=== PATIENT | female | born 1955 | race Caucasian/White ===

== ENCOUNTER → 2016-08-21 | Outpatient (REF) | payer OTHER ==
[2016-08-21 20:14] LABS: BASO % 0.4 % (0.0-1.0); EOS # 0.3 K/mm3 (0.0-0.50); LARGE UNSTAINED CELL # 0.2 K/mm3 (0.0-0.4); LARGE UNSTAINED CELL % 2.8 % (0.0-4.0); LYMPH # 1.8 K/mm3 (1.5-4.5); LYMPH % 22.7 % (24.0-44.0); MEAN CORPUSCULAR HEMOGLOBIN 30.3 pg (27.0-33.0); MEAN CORPUSCULAR HGB CONC 34.5 g/dl (32.0-36.5); MEAN CORPUSCULAR VOLUME 87.9 fl (80.0-96.0); MONO # 0.6 K/mm3 (0.0-0.8); MONO % 7.7 % (0.0-5.0); NEUTROPHILS # 4.9 K/mm3 (1.8-7.7); NEUTROPHILS % 62.3 % (36.0-66.0); PLATELET COUNT, AUTOMATED 287 k/mm3 (150-450); RED CELL DISTRIBUTION WIDTH 12.6 % (11.5-14.5); WHITE BLOOD COUNT 7.9 K/mm3 (4.0-10.0)
[2016-08-21 20:18] LABS: INR 0.92
[2016-08-21 20:32] LABS: ANION GAP 8 MEQ/L (8-16); BLOOD UREA NITROGEN 19 MG/DL (7-18); CALCIUM LEVEL 8.8 MG/DL (8.5-10.1); CARBON DIOXIDE LEVEL 29 MEQ/L (21-32); CHLORIDE LEVEL 101 MEQ/L (98-107); CREATININE FOR GFR 0.91 MG/DL (0.55-1.02); GLOMERULAR FILTRATION RATE > 60.0 (>51); GLUCOSE, FASTING 105 MG/DL (70-105); POTASSIUM SERUM 4.5 MEQ/L (3.5-5.1); SODIUM LEVEL 138 MEQ/L (136-145)
== END ==
LOC: M LAB REF 19:23
PROVIDERS: ATTEND Surgery Vascular Surgery
DX: Z01.818 Encounter for other preprocedural examination (principal); I70.211 Atherosclerosis of native arteries of extremities with intermittent claudication, right leg; D69.8 Other specified hemorrhagic conditions

== ENCOUNTER 2019-01-12 08:22 | Day surgery (SDC) | payer OTHER ==
[~2019-01-12] VITALS: Ht 185.4 cm; Wt 72.6 kg
[~2019-01-12 08:22] MED LIST: ACETAMINOPHEN 325 MG TAB PO PRN; ATOR80TA59 PO; BALANCED SALT IRRIGATION SOLUTION 500ML BAG (FOR OR EYE MACHINE) As Ordered ONE; BUPR150T5 PO; CEFUROXIME 1MG/0.1ML INTRACAMERAL INJ As Ordered ONE; CLOP75TA2 PO; CYCLOPENTOLATE 2% OPHTH SOLN 2ML BTL OS ONE; HEALON DUET PRO(HEALON 10MG/ML 0.55ML & HEALON ENDOCOAT 30MG/ML 0.85ML) As Ordered ONE; HYDR12CA PO; ISOS30TA4 PO; LIDOCAINE 1% SDV 5 ML VIAL As Ordered ONE; LIDOCAINE 3.5 % 1ML OPHTH TOPICAL GEL OU ONE; LOSA50TA88 PO; METO1TAB33 PO; OFLOXACIN 0.3 % (OCUFLOX) OPTH SOL 5ML OS ONE; PHENYLEPHRINE 2.5% OPHTH SOL 2ML OS ONE; PHENYLEPHRINE HCL 10 % OPHTH. SOL 5ML OS PRN; POVIDONE-IODINE 5% OPHTH PREP SOL 30ML As Ordered ONE; PROPARACAINE 0.5% OPHTH SOL 15ML OS PRN; TROPICAMIDE 1% OPHTH SOLN 2ML OS ONE; VENL37TA PO
[2019-01-12] MEDS ORDERED: MIDAZOLAM INJ 2 MG/2 ML VIAL (J2250) As Ordered ONE (09:49)
[2019-01-12] MEDS ORDERED: fentaNYL 100 MCG/2 ML INJECTION (J3010) As Ordered ONE (09:49)
[2019-01-12] MEDS ORDERED: AcetaZOLAMIDE 500 MG ER CAP As Ordered ONE (12:29)
[2019-01-12 12:35] VITALS: BP 192/78
[2019-01-12] MEDS ORDERED: KETOROLAC 0.5% OPHTH SOLN OS ONE (13:00)
[2019-01-12] MEDS ORDERED: ONDANSETRON 4MG/2ML VIAL (J2405) IV PRN (13:00)
[2019-01-12] MEDS ORDERED: AcetaZOLAMIDE 500 MG ER CAP PO ONE (13:00)
[2019-01-12] MEDS ORDERED: TRIMETHOBENZAMIDE 300 MG CAP PO PRN (13:00)
--- NOTE | 2019-01-13 08:27 | RO ---
DATE OF PROCEDURE: 01/12/2019 PREPROCEDURE DIAGNOSIS: Age related nuclear cataract, left eye. POSTPROCEDURE DIAGNOSIS: Age related nuclear cataract, left eye. PROCEDURE: Phacoemulsification and posterior chamber intraocular lens implantation. The lens used was [id number], 20.0 D. SURGEON: Viad Castro MD MEDICAL AIDE: ANESTHESIA: Topical with sedation. DESCRIPTION OF PROCEDURE: The patient was prepped and draped in the usual fashion. A lid speculum was placed between the lids. The eye was fixated. A stab incision was made to the anterior chamber, and 1% nonpreserved lidocaine was instilled. Then, viscoelastic was instilled. The eye was re-fixated. A 2.75 mm sapphire keratome was used to make a clear corneal temporal limbal incision. Capsulorrhexis was begun with a 30-gauge bent needle and then carried out in a circular fashion with capsulorrhexis forceps. The lens was hydrodissected, and then the phacoemulsification unit was used to make a groove in the nucleus in two meridians. The nucleus was then cracked into four quadrants. Each quadrant was removed with the phacoemulsification unit. Any remaining cortex was removed with the irrigation and aspiration (I and A) unit. Capsular bag was refilled with viscoelastic. A posterior chamber intraocular lens was placed in the capsular bag without difficulty. Any remaining viscoelastic was removed with the I and A unit. The wound was hydrated, and Miochol and cefuroxime were instilled into the anterior chamber. The patient tolerated the procedure well and went to the recovery room in stable condition.
== END 2019-01-12 12:46 | disposition home or self-care (01) ==
LOC: M SDC 08:22
PROVIDERS: ATTEND Ophthalmology
DX: H25.12 Age-related nuclear cataract, left eye (principal); I25.10 Atherosclerotic heart disease of native coronary artery without angina pectoris; I10 Essential (primary) hypertension; Z79.899 Other long term (current) drug therapy; Z95.1 Presence of aortocoronary bypass graft
CPT/HCPCS: 66984; 92015; J2250; J3010

== ENCOUNTER 2019-02-02 10:21 | Day surgery (SDC) | payer OTHER ==
[~2019-02-02] VITALS: Ht 154.9 cm; Wt 70.3 kg
[~2019-02-02 10:21] MED LIST changes: +CYCLOPENTOLATE 2% OPHTH SOLN 2ML BTL OD ONE; -CYCLOPENTOLATE 2% OPHTH SOLN 2ML BTL OS ONE; +MIDAZOLAM INJ 2 MG/2 ML VIAL (J2250) As Ordered ONE; +OFLOXACIN 0.3 % (OCUFLOX) OPTH SOL 5ML OD ONE; -OFLOXACIN 0.3 % (OCUFLOX) OPTH SOL 5ML OS ONE; +PHENYLEPHRINE 2.5% OPHTH SOL 2ML OD ONE; -PHENYLEPHRINE 2.5% OPHTH SOL 2ML OS ONE; +PHENYLEPHRINE HCL 10 % OPHTH. SOL 5ML OD PRN; -PHENYLEPHRINE HCL 10 % OPHTH. SOL 5ML OS PRN; +PROPARACAINE 0.5% OPHTH SOL 15ML OD PRN; -PROPARACAINE 0.5% OPHTH SOL 15ML OS PRN; +TROPICAMIDE 1% OPHTH SOLN 2ML OD ONE; -TROPICAMIDE 1% OPHTH SOLN 2ML OS ONE; +fentaNYL 100 MCG/2 ML INJECTION (J3010) As Ordered ONE
[2019-02-02] MEDS ORDERED: TETRACAINE 0.5% OPHTH SOLN 4ML As Ordered ONE (10:58)
[2019-02-02] MEDS ORDERED: KETOROLAC 0.5% OPHTH SOLN OD ONE (11:30)
[2019-02-02] MEDS ORDERED: TRIMETHOBENZAMIDE 300 MG CAP PO PRN (11:30)
[2019-02-02] MEDS ORDERED: AcetaZOLAMIDE 500 MG ER CAP PO ONE (11:30)
[2019-02-02 11:40] VITALS: BP 136/66
--- NOTE | 2019-02-02 12:30 | RO ---
DATE OF PROCEDURE: 02/02/2019 PREPROCEDURE DIAGNOSIS: Age related nuclear cataract, right eye. POSTPROCEDURE DIAGNOSIS: Age related nuclear cataract, right eye. PROCEDURE: Phacoemulsification and posterior chamber intraocular lens implantation of right eye. SURGEON: Vida Castro MD CIRCLE SHEAR OPERATOR: ANESTHESIA: Topical with sedation. DESCRIPTION OF PROCEDURE: The patient was prepped and draped in the usual fashion. A lid speculum was placed between the lids. The eye was fixated. A stab incision was made to the anterior chamber, and 1% nonpreserved lidocaine was instilled. Then, viscoelastic was instilled. The eye was re-fixated. A 2.75 mm sapphire keratome was used to make a clear corneal temporal limbal incision. Capsulorrhexis was begun with a 30-gauge bent needle and then carried out in a circular fashion with capsulorrhexis forceps. The lens was hydrodissected, and then the phacoemulsification unit was used to make a groove in the nucleus in two meridians. The nucleus was then cracked into four quadrants. Each quadrant was removed with the phacoemulsification unit. Any remaining cortex was removed with the irrigation and aspiration (I and A) unit. Capsular bag was refilled with viscoelastic. A posterior chamber intraocular lens was placed in the capsular bag without difficulty. Any remaining viscoelastic was removed with the I and A unit. The wound was hydrated, and Miochol and cefuroxime were instilled into the anterior chamber. The patient tolerated the procedure well and went to the recovery room in stable condition.
== END 2019-02-02 11:45 | disposition home or self-care (01) ==
LOC: M SDC 10:21
PROVIDERS: ATTEND Ophthalmology
DX: H25.11 Age-related nuclear cataract, right eye (principal); I25.2 Old myocardial infarction; I25.10 Atherosclerotic heart disease of native coronary artery without angina pectoris; Z95.1 Presence of aortocoronary bypass graft; Z95.5 Presence of coronary angioplasty implant and graft; I10 Essential (primary) hypertension; Z79.899 Other long term (current) drug therapy
CPT/HCPCS: 66984; 92015; J2250; J3010

== ENCOUNTER 2019-03-25 11:12 | Inpatient (IN) | payer OTHER ==
[~2019-03-25] VITALS: Ht 154.9 cm; Wt 68.6 kg
[~2019-03-25 11:12] MED LIST changes: -ASPI81TA85 PO; -BREO1INH INH; -BRIL1TAB PO; -NIFE30TA7 PO; -PROT20TA11 PO
[2019-03-25] MEDS ORDERED: METO1TAB33 PO (11:35)
[2019-03-25] MEDS ORDERED: BREO1INH INH (11:35)
[2019-03-25] MEDS ORDERED: BRIL1TAB PO (11:35)
[2019-03-25] MEDS ORDERED: ASPI81TA85 PO (11:35)
[2019-03-25] MEDS ORDERED: NIFE30TA7 PO (11:35)
[2019-03-25 12:13] LABS: BASO # 0.1 10^3/uL (0.0-0.2); BASO % 0.8 % (0.0-1.0); EOS # 0.2 10^3/uL (0.0-0.5); EOS % 1.9 % (0.0-3.0); HEMATOCRIT 21.5 % (36.0-47.0); LYMPH # 1.3 10^3/uL (1.5-5.0); LYMPH % 15.7 % (24.0-44.0); MEAN CORPUSCULAR HEMOGLOBIN 25.1 pg (27.0-33.0); MEAN CORPUSCULAR HGB CONC 31.2 g/dl (32.0-36.5); MEAN CORPUSCULAR VOLUME 80.5 fl (80.0-96.0); MONO % 11.2 % (0.0-5.0); NEUTROPHILS # 5.9 10^3/uL (1.5-8.5); NEUTROPHILS % 69.8 % (36.0-66.0); PLATELET COUNT, AUTOMATED 453 10^3/uL (150-450); RED BLOOD COUNT 2.67 10^6/uL (4.00-5.40); WHITE BLOOD COUNT 8.5 10^3/uL (4.0-10.0)
[2019-03-25 12:16] LABS: HEMOGLOBIN 6.7 g/dl (12.0-15.5)
[2019-03-25 12:23] LABS: INR 1.08; PROTHROMBIN TIME 13.8 SECONDS (11.8-14.0)
[2019-03-25 12:24] LABS: PARTIAL THROMBOPLASTIN TIME 28.9 SECONDS (25.0-38.4)
[2019-03-25 12:50] LABS: ALBUMIN 3.5 GM/DL (3.2-5.2); ALT/SGPT 17 U/L (12-78); BILIRUBIN,DIRECT < 0.1 MG/DL (0.0-0.2); BILIRUBIN,TOTAL 0.2 MG/DL (0.2-1.0); BLOOD UREA NITROGEN 12 MG/DL (7-18); CALCIUM LEVEL 9.4 MG/DL (8.8-10.2); CARBON DIOXIDE LEVEL 24 MEQ/L (21-32); CHLORIDE LEVEL 101 MEQ/L (98-107); CREATININE FOR GFR 0.71 MG/DL (0.55-1.30); GLOMERULAR FILTRATION RATE > 60.0 (>45); GLUCOSE, FASTING 102 MG/DL (70-100); LIPASE 80 U/L (73-393); POTASSIUM SERUM 4.2 MEQ/L (3.5-5.1); SODIUM LEVEL 135 MEQ/L (136-145); TOTAL PROTEIN 6.9 GM/DL (6.4-8.2)
[2019-03-25] MEDS ORDERED: PANTOPRAZOLE 40MG INJ (PROTONIX) (C9113) IV ONE (13:15)
[2019-03-25] MEDS ORDERED: ACETAMINOPHEN TAB 650MG DOSE (2X325MG) PO PRN (14:30)
--- NOTE | 2019-03-25 14:49 | HPEPDOC ---
General Date of Admission Mar 25, 2019 at 14:18 Date of Service: Mar 25, 2019 Primary Care Physician: Hortensia Helton MD Attending Physician: YULISA LARRY MD Chief Complaint The patient is a 63-year-old female admitted with a reason for visit of Acute Anemia,Gi Bleeding. Source: Patient Exam Limitations: No limitations Timing/Duration: Other (since November) Severity: Moderate Associated Symptoms: Other (dark stools) Home Medications Scheduled Aspirin (Aspir 81) 81 Mg Tablet.dr, 81 MG PO DAILY, (Reported) Atorvastatin Calcium (Atorvastatin Calcium) 80 Mg Tablet, 80 MG PO DAILY, (Reported) Hydrochlorothiazide (Hydrochlorothiazide) 12.5 Mg Capsule, 12.5 MG PO DAILY, (Reported) Isosorbide Mononitrate (Isosorbide Mononitrate ER) 30 Mg Tab.er.24h, 30 MG PO DAILY, (Reported) Losartan Potassium (Losartan Potassium) 50 Mg Tablet, 50 MG PO DAILY, (Reported) Metoprolol Succinate (Metoprolol Succinate) 100 Mg Tab.er.24h, 100 MG PO DAILY, (Reported) Nifedipine (Nifedipine ER) 30 Mg Tab.er.24, 30 MG PO DAILY, (Reported) Ticagrelor (Brilinta) 60 Mg Tablet, 60 MG PO BID, (Reported) Venlafaxine HCl (Venlafaxine HCl) 37.5 Mg Tablet, 37.5 MG PO BID, (Reported) Scheduled PRN Fluticasone/Vilanterol (Breo Ellipta 100-25 Mcg INH) 1 Each Blst.w.dev, 1 PUFF INH DAILY PRN for SHORTNESS OF BREATH, (Reported) PATIENT STATES SHE USES PRN Allergies Coded Allergies: No Known Allergies (Unverified , 01/04/19) Past Medical History Medical History CAD status post CABG, carotid artery disease, peripheral artery disease, cataracts Surgical History CABG, right carotid endarterectomy Family History Significant Family History: Other (. Mother had hypertension) Social History * Smoker: former Smoker, other (smoking in November 2018) Alcohol: Denies Drugs: denies A-FIB/CHADSVASC A-FIB History Current/History of A-Fib/PAF?: No Review of Systems Constitutional: Reports: Weakness Eyes: Denies: Pain, Vision change, Conjunctivae inflammation, Eyelid inflammation, Redness, Other ENT: Denies: Head Aches, Ear Pain, Dysphagia, Sinus Congestion, Post Nasal Drip, Sore Throat, Epistaxis, Other Symptoms Skin: Denies: Rash, Lesions, Jaundice, Bruising, Itching, Dry, Breakdown, Nail Changes, Other Pulmonary: Denies: Dyspnea, Cough, Pleuritic Chest Pain, Other Symptoms Cardiovascular: Denies: Chest Pain, Palpitations, Orthopnea, Paroxysmal Noc. Dyspnea, Edema, Lt Headedness, Other Symptoms Gastrointestinal: Reports: Other Symptoms (. Tox stools) Genitourinary: Denies: Dysuria, Frequency, Incontinence, Hematuria, Retention, Other Symptoms Hematologic: Denies: Bruising, Bleeding Excessively, Petecchia, Purpura, Enlarged Lymph Nodes, Other Hematologic Musculoskeletal: Denies: Neck Pain, Back Pain, Shoulder Pain, Arm Pain, Hand Pain, Leg Pain, Foot Pain, Joint Pain, Muscle Pain, Spasms, Other Symptoms Neurological: Denies: Weakness, Numbness, Incoordination, Change in speech, Confusion, Seizures, Other Symptoms Psych: Denies: Mood Normal, Anxiety, Depression, Memory Issues, Thoughts of Self Harm, Anger, Thoughts of Harming Other, Other Psych Physical Examination General Exam: Positive: Alert, Cooperative Eye Exam: Positive: PERRLA, Conjunctiva & lids normal ENT Exam: Positive: Atraumatic, Mucous membr. moist/pink Neck Exam: Positive: Supple, JVD Chest Exam: Positive: Clear to auscultation, Normal air movement Heart Exam: Positive: Rate Normal, Normal S1, Normal S2 Abdomen Exam: Positive: Normal bowel sounds, Soft, Tenderness Extremity Exam: Positive: Normal pulses Skin Exam: Positive: Nl turgor and temperature Neuro Exam: Positive: Normal Speech, Strength at 5/5 X4 ext, Sensation Intact Psych Exam: Positive: Mental status NL, Mood NL Vital Signs Vital Signs Date Time Temp Pulse Resp B/P (MAP) Pulse Ox O2 Delivery O2 Flow Rate FiO2 03/25/19 11:39 03/25/19 11:13 98.3 104 18 100 Room Air Laboratory Data Labs 24H Laboratory Tests 2 03/25/19 12:01: Immature Granulocyte % (Auto) 0.6, White Blood Count 8.5, Red Blood Count 2.67L, Hemoglobin 6.7*L, Hematocrit 21.5L, Mean Corpuscular Volume 80.5, Mean Corpu scular Hemoglobin 25.1L, Mean Corpuscular Hemoglobin Concent 31.2L, Red Cell Distribution Width 15.5H, Platelet Count 453H, Neutrophils (%) (Auto) 69.8H, Lymphocytes (%) (Auto) 15.7L, Monocytes (%) (Auto) 11.2H, Eosinophils (%) (Auto) 1.9, Basophils (%) (Auto) 0.8, Neutrophils # (Auto) 5.9, Lymphocytes # (Auto) 1.3L, Monocytes # (Auto) 1.0H, Eosinophils # (Auto) 0.2, Basophils # (Auto) 0.1, Nucleated Red Blood Cells % (auto) 0.0, Prothrombin Time 13.8, Prothromb Time International Ratio 1.08, Activated Partial Thromboplast Time 28.9, Anion Gap 10, Glomerular Filtration Rate > 60.0, Calcium Level 9.4, Aspartate Amino Transf (AST/SGOT) 13, Alanine Aminotransferase (ALT/SGPT) 17, Alkaline Phosphatase 76, Total Bilirubin 0.2, Direct Bilirubin < 0.1, Total Protein 6.9, Albumin 3.5, Albumin/Globulin Ratio 1.03, Lipase 80 CBC/BMP Laboratory Tests 03/25/19 12:01 Red Blood Count 2.67 L, Mean Corpuscular Volume 80.5, Mean Corpuscular Hemoglobin 25.1 L, Mean Corpuscular Hemoglobin Concent 31.2 L, Red Cell Distribution Width 15.5 H, Neutrophils (%) (Auto) 69.8 H, Lymphocytes (%) (Auto) 15.7 L, Monocytes (%) (Auto) 11.2 H, Eosinophils (%) (Auto) 1.9, Basophils (%) (Auto) 0.8, Neutrophils # (Auto) 5.9, Lymphocytes # (Auto) 1.3 L, Monocytes # (Auto) 1.0 H, Eosinophils # (Auto) 0.2, Basophils # (Auto) 0.1 Problems (1) Acute blood loss anemia Status: Acute Problem Text: 63 years old white female with past medical history of CAD, PAD, status post cataract surgeries, status post CABG, status post right carotid endarterectomy was in her usual state of health until November when she started noticing dark stools when she defecated. Initially there were small in quantity but progressively increased to all became tarry black in color. Patient denies abdominal pain, nausea, vomiting, chest pain, shortness of breath, etc. Patient is being admitted to PCU for blood transfusion and GI workup , Hemoglobin is 6.7 Transfuse 2 units of PRBC today Repeat hemoglobin posttransfusion. Monitor hemoglobin and hematocrit (2) GI bleeding Status: Acute Problem Text: IV fluid normal saline 70 mL per hour Transfuse him 2 units of PRBC today Protonix 40 mg IV every 12 hours Clear liquid diet Date stockings for DVT prophylaxis Dr. Mcneal called for GI consultation A.m. labs (3) PAD (peripheral artery disease) Status: Chronic Problem Text: Hold aspirin and presented to the GI workup is complete Continue all other meds (4) CAD (coronary artery disease) Status: Chronic Problem Text: Hold aspirin and presented to the GI workup is complete and GI bleeding has resolved Continue all other home meds except hydrochlorothiazide Plan / VTE VTE Prophylaxis Ordered?: Yes YULISA LARRY MD Mar 25, 2019 14:49
[2019-03-25 15:45] VITALS: BP 200/80
[2019-03-25] MEDS ORDERED: FUROSEMIDE 20 MG/2 ML VIAL (J1940) IV ONE (16:15)
[2019-03-25] MEDS: PANTOPRAZOLE 40MG INJ (PROTONIX) (C9113) IV SCH (16:19)
[2019-03-25 17:00] VITALS: BP 168/74
[2019-03-25 17:50] VITALS: BP 166/70
[2019-03-25 20:00] VITALS: BP 174/72
[2019-03-25] MEDS: NS 1,000 ML IV SCH (20:15)
[2019-03-25 21:06] LABS: HEMATOCRIT 28.9 % (36.0-47.0); HEMOGLOBIN 9.3 g/dl (12.0-15.5); MEAN CORPUSCULAR HEMOGLOBIN 26.1 pg (27.0-33.0); MEAN CORPUSCULAR HGB CONC 32.2 g/dl (32.0-36.5); MEAN CORPUSCULAR VOLUME 81.2 fl (80.0-96.0); PLATELET COUNT, AUTOMATED 429 10^3/uL (150-450); RED BLOOD COUNT 3.56 10^6/uL (4.00-5.40)
[2019-03-25] MEDS: VENLAFAXINE 37.5 MG TAB PO SCH (21:15)
[2019-03-25 23:59] VITALS: BP 142/58
[2019-03-26] MEDS: NS 1,000 ML IV SCH (02:55)
[2019-03-26 04:00] VITALS: BP 160/62
[2019-03-26] MEDS: PANTOPRAZOLE 40MG INJ (PROTONIX) (C9113) IV SCH ×2 (04:18→17:01)
[2019-03-26 06:09] LABS: HEMATOCRIT 30.4 % (36.0-47.0); HEMOGLOBIN 9.7 g/dl (12.0-15.5); MEAN CORPUSCULAR HEMOGLOBIN 26.5 pg (27.0-33.0); MEAN CORPUSCULAR HGB CONC 31.9 g/dl (32.0-36.5); MEAN CORPUSCULAR VOLUME 83.1 fl (80.0-96.0); PLATELET COUNT, AUTOMATED 438 10^3/uL (150-450); RED BLOOD COUNT 3.66 10^6/uL (4.00-5.40); WHITE BLOOD COUNT 8.1 10^3/uL (4.0-10.0)
[2019-03-26 06:33] LABS: ALBUMIN 3.4 GM/DL (3.2-5.2); ALT/SGPT 17 U/L (12-78); BILIRUBIN,TOTAL 0.3 MG/DL (0.2-1.0); BLOOD UREA NITROGEN 13 MG/DL (7-18); CALCIUM LEVEL 8.8 MG/DL (8.8-10.2); CARBON DIOXIDE LEVEL 28 MEQ/L (21-32); CHLORIDE LEVEL 99 MEQ/L (98-107); GLOMERULAR FILTRATION RATE > 60.0 (>45); GLUCOSE, FASTING 90 MG/DL (70-100); POTASSIUM SERUM 3.8 MEQ/L (3.5-5.1); SODIUM LEVEL 135 MEQ/L (136-145); TOTAL PROTEIN 7.7 GM/DL (6.4-8.2)
[2019-03-26 08:00] VITALS: BP 158/70
[2019-03-26] MEDS: ATORVASTATIN 20 MG TAB PO SCH (08:02)
[2019-03-26] MEDS: VENLAFAXINE 37.5 MG TAB PO SCH ×2 (08:02→20:05)
[2019-03-26] MEDS: LOSARTAN 50 MG TAB PO SCH (08:02)
[2019-03-26] MEDS: NIFEdipine 30 MG XL TAB PO SCH (08:02)
[2019-03-26] MEDS: ISOSORBIDE MON. (IMDUR) 30 MG XR TAB PO SCH (08:03)
[2019-03-26] MEDS: METOPROLOL SUCC (TopROL XL) 100MG *XL* TAB PO SCH (08:04)
[2019-03-26] MEDS ORDERED: GOLYTELY SOLN 4000 ML BTL PO ONE (09:00)
--- NOTE | 2019-03-26 10:32 | IPNPDOC ---
Subjective Date Seen The patient was seen on 03/26/19. Subjective Chief Complaint/HPI Patient is comfortable offers no new complaints, in no distress General: Denies: ROS Unobtainable, Chills, Night Sweats, Fatigue, Malaise, Normal Appetite, Other Symptoms Constitutional: Denies: Chills, Fever, Malaise, Night Sweats, Weakness, Fatigue, Weight Loss, Lethargy, Other Pulmonary: Denies: Dyspnea, Cough, Pleuritic Chest Pain, Other Symptoms Cardiovascular: Denies: Chest Pain, Palpitations, Orthopnea, Paroxysmal Noc. Dyspnea, Edema, Lt Headedness, Other Symptoms Gastrointestinal: Denies: Nausea, Vomiting, Abdominal Pain, Diarrhea, Constipation Musculoskeletal: Denies: Neck Pain, Back Pain, Shoulder Pain, Arm Pain, Hand Pain, Leg Pain, Foot Pain, Joint Pain, Muscle Pain, Spasms, Other Symptoms Neurological: Denies: Weakness, Numbness, Incoordination, Change in speech, Confusion, Seizures, Other Symptoms Objective Physical Examination ENT Exam: Positive: Atraumatic, Mucous membr. moist/pink Neck Exam: Positive: Supple, JVD Chest Exam: Positive: Clear to auscultation, Normal air movement Heart Exam: Positive: Rate Normal, Normal S1, Normal S2 Abdomen Exam: Positive: Normal bowel sounds, Soft, Tenderness Extremity Exam: Positive: Normal pulses Skin Exam: Positive: Nl turgor and temperature Neuro Exam: Positive: Normal Speech, Strength at 5/5 X4 ext, Sensation Intact Assessment /Plan Problems (1) Acute blood loss anemia Status: Acute Problem Text: 63 years old white female with past medical history of CAD, PAD, status post cataract surgeries, status post CABG, status post right carotid endarterectomy was in her usual state of health until November when she started noticing dark stools when she defecated. Initially there were small in quantity but progressively increased to all became tarry black in color. Patient denies abdominal pain, nausea, vomiting, chest pain, shortness of breath, etc. Patient is being admitted to PCU for blood transfusion and GI workup , Hemoglobin 6.7 on admission Patient received 2 units of PRBC last night Patient's hemoglobin is 9.7 and hematocrit 30.[address] Mcneal scheduled for EGD and colonoscopy today Monitor H&H (2) GI bleeding Status: Acute Problem Text: DC IV fluids Action is improved after transfusion of 2 units of PRBC Protonix 40 mg IV every 12 hours Clear liquid diet Date stockings for DVT prophylaxis Scheduled for EGD and colonoscopy today Or 2. H&H (3) PAD (peripheral artery disease) Status: Chronic Problem Text: Hold aspirin and presented to the GI workup is complete Continue all other meds (4) CAD (coronary artery disease) Status: Chronic Problem Text: Hold aspirin and presented to the GI workup is complete and GI bleeding has resolved Continue all other home meds except hydrochlorothiazide Plan/VTE VTE Prophylaxis Ordered?: Yes VS, I&O, 24H, Fishbone Vital Signs/I&O Vital Signs Date Time Temp Pulse Resp B/P (MAP) Pulse Ox O2 Delivery O2 Flow Rate FiO2 03/26/19 08:02 158/70 03/26/19 08:00 98.4 91 17 99 03/25/19 11:13 Room Air I&O- Last 24 Hours up to 6 AM 03/26/19 05:59 Intake Total 1690 ml Output Total 2400 ml Balance -710 ml Laboratory Data 24H LABS Laboratory Tests 2 03/25/19 12:01: Immature Granulocyte % (Auto) 0.6, White Blood Count 8.5, Red Blood Count 2.67L, Hemoglobin 6.7*L, Hematocrit 21.5L, Mean Corpuscular Volume 80.5, Mean Corpuscular Hemoglobin 25.1L, Mean Corpuscular Hemoglobin Concent 31.2L, Red Cell Distribution Width 15.5H, Platelet Count 453H, Neutrophils (%) (Auto) 69.8H, Lymphocytes (%) (Auto) 15.7L, Monocytes (%) (Auto) 11.2H, Eosinophils (%) (Auto) 1.9, Basophils (%) (Auto) 0.8, Neutrophils # (Auto) 5.9, Lymphocytes # (Auto) 1.3L, Monocytes # (Auto) 1.0H, Eosinophils # (Auto) 0.2, Basophils # (Auto) 0.1, Nucleated Red Blood Cells % (auto) 0.0, Prothrombin Time 13.8, Prothromb Time International Ratio 1.08, Activated Partial Thromboplast Time 28.9, Anion Gap 10, Glomerular Filtration Rate > 60.0, Calcium Level 9.4, Aspartate Amino Transf (AST/SGOT) 13, Alanine Aminotransferase (ALT/SGPT) 17, Alkaline Phosphatase 76, Total Bilirubin 0.2, Direct Bilirubin < 0.1, Total Protein 6.9, Albumin 3.5, Albumin/Globulin Ratio 1.03, Lipase 80 03/25/19 20:58: Nucleated Red Blood Cells % (auto) 0.0 03/26/19 05:29: Nucleated Red Blood Cells % (auto) 0.0, Anion Gap 8, Glomerular Filtration Rate > 60.0, Calcium Level 8.8, Aspartate Amino Transf (AST/SGOT) 21, Alanine Aminotransferase (ALT/SGPT) 17, Alkaline Phosphatase 78, Total Bilirubin 0.3, Total Protein 7.7, Albumin 3.4, Albumin/Globulin Ratio 0.79L, Blood Urea Nitrogen 13, Creatinine 0.90, Sodium Level 135L, Potassium Level 3.8, Chloride Level 99, Carbon Dioxide Level 28 CBC/BMP Laboratory Tests 03/25/19 12:01 Red Blood Count 2.67 L, Mean Corpuscular Volume 80.5, Mean Corpuscular Hemoglobin 25.1 L, Mean Corpuscular Hemoglobin Concent 31.2 L, Red Cell Distribution Width 15.5 H, Neutrophils (%) (Auto) 69.8 H, Lymphocytes (%) (Auto) 15.7 L, Monocytes (%) (Auto) 11.2 H, Eosinophils (%) (Auto) 1.9, Basophils (%) (Auto) 0.8, Neutrophils # (Auto) 5.9, Lymphocytes # (Auto) 1.3 L, Monocytes # (Auto) 1.0 H, Eosinophils # (Auto) 0.2, Basophils # (Auto) 0.1 03/25/19 20:58 Red Blood Count 3.56 L, Mean Corpuscular Volume 81.2, Mean Corpuscular Hemoglobin 26.1 L, Mean Corpuscular Hemoglobin Concent 32.2, Red Cell Distribution Width 15.8 H 03/26/19 05:29 Red Blood Count 3.66 L, Mean Corpuscular Volume 83.1, Mean Corpuscular Hemoglobin 26.5 L, Mean Corpuscular Hemoglobin Concent 31.9 L, Red Cell Distribution Width 15.7 H, Calcium Level 8.8, Aspartate Amino Transf (AST/SGOT) 21, Alanine Aminotransferase (ALT/SGPT) 17, Alkaline Phosphatase 78, Total Bilirubin 0.3, Total Protein 7.7, Albumin 3.4 YULISA LARRY MD Mar 26, 2019 10:32
[2019-03-26 12:00] VITALS: BP 157/67
[2019-03-26 16:00] VITALS: BP 171/78
[2019-03-26] MEDS ORDERED: hydrALAZINE INJ 20 MG/ML VIAL IV PRN (16:15)
[2019-03-26 20:43] VITALS: BP 164/68
[2019-03-26 23:59] VITALS: BP 144/64
[2019-03-27] MEDS: PANTOPRAZOLE 40MG INJ (PROTONIX) (C9113) IV SCH (03:05)
[2019-03-27 04:00] VITALS: BP 140/66
[2019-03-27 05:35] LABS: BASO # 0.1 10^3/uL (0.0-0.2); BASO % 0.6 % (0.0-1.0); EOS # 0.2 10^3/uL (0.0-0.5); EOS % 2.5 % (0.0-3.0); HEMATOCRIT 28.7 % (36.0-47.0); LYMPH % 12.4 % (24.0-44.0); MEAN CORPUSCULAR HEMOGLOBIN 25.5 pg (27.0-33.0); MEAN CORPUSCULAR HGB CONC 31.4 g/dl (32.0-36.5); MEAN CORPUSCULAR VOLUME 81.3 fl (80.0-96.0); MONO # 0.9 10^3/uL (0.0-0.8); MONO % 11.1 % (0.0-5.0); NEUTROPHILS # 5.7 10^3/uL (1.5-8.5); PLATELET COUNT, AUTOMATED 427 10^3/uL (150-450); RED BLOOD COUNT 3.53 10^6/uL (4.00-5.40); WHITE BLOOD COUNT 7.8 10^3/uL (4.0-10.0)
[2019-03-27 06:05] LABS: BLOOD UREA NITROGEN 11 MG/DL (7-18); CARBON DIOXIDE LEVEL 27 MEQ/L (21-32); CHLORIDE LEVEL 103 MEQ/L (98-107); CREATININE FOR GFR 0.73 MG/DL (0.55-1.30); GLOMERULAR FILTRATION RATE > 60.0 (>45); GLUCOSE, FASTING 95 MG/DL (70-100); POTASSIUM SERUM 3.6 MEQ/L (3.5-5.1); SODIUM LEVEL 137 MEQ/L (136-145)
[2019-03-27 06:06] LABS: ALBUMIN 3.3 GM/DL (3.2-5.2); ALT/SGPT 18 U/L (12-78); BILIRUBIN,TOTAL 0.4 MG/DL (0.2-1.0); CALCIUM LEVEL 8.7 MG/DL (8.8-10.2); TOTAL PROTEIN 7.4 GM/DL (6.4-8.2)
[2019-03-27 08:00] VITALS: BP 150/75
[2019-03-27] MEDS ORDERED: PROPOFOL 200 MG/20 ML VIAL As Ordered ONE ×2 (08:19→09:31)
[2019-03-27] MEDS ORDERED: LIDOCAINE 2% INJ 100 MG/5 ML SDV (FOR ANES.) As Ordered ONE (08:19)
[2019-03-27] MEDS ORDERED: fentaNYL 100 MCG/2 ML INJECTION (J3010) As Ordered ONE (08:20)
[2019-03-27] MEDS ORDERED: FLUBLOK(EGG FREE)(QUAD)INFLUENZA VACC 0.5ML SYRINGE (90682)18YRS&OLDER IM ONE (09:00)
[2019-03-27] MEDS ORDERED: PHENYLephrine HCL 500 MCG/5 ML (100MCG/ML) SYRINGE (J2370) As Ordered ONE (09:19)
[2019-03-27] MEDS ORDERED: LR 1,000 ML IV SCH (10:00)
[2019-03-27] MEDS ORDERED: ONDANSETRON 4MG/2ML VIAL (J2405) IV PRN (10:00)
--- NOTE | 2019-03-27 10:07 | ROOR ---
Patient Name: Roula Oliver Procedure Date: 03/27/2019 8:36 AM Date of : 1955 Age: 63 Gender: Female Note Status: Finalized Procedure: Upper GI endoscopy Indications: Iron deficiency anemia, Melena Providers: Tree Mcneal MD Referring MD: 1. No Referring Physician 1. No Referring Physician, Admin. Requesting Provider: Medicines: Monitored Anesthesia Care Complications: No immediate complications. Procedure: Pre-Anesthesia Assessment: - The heart rate, respiratory rate, oxygen saturations, blood pressure, adequacy of pulmonary ventilation, and response to care were monitored throughout the procedure. The Endoscope was introduced through the mouth, and advanced to the second part of duodenum. The upper GI endoscopy was accomplished without difficulty. The patient tolerated the procedure well. Findings: The Z-line was regular and was found 40 cm from the incisors. A small hiatal hernia was present. Localized mild inflammation characterized by congestion (edema) and erythema was found in the gastric antrum. Localized mildly erythematous mucosa without active bleeding and with no stigmata of bleeding was found in the duodenal bulb and in the first portion of the duodenum. The exam was otherwise without abnormality. Impression: - Z-line regular, 40 cm from the incisors. - Small hiatal hernia. - Gastritis. - Erythematous duodenopathy. - The examination was otherwise normal. - No specimens collected. - The examination was otherwise normal. Recommendation: - Patient has a contact number available for emergencies. The signs and symptoms of potential delayed complications were discussed with the patient. Return to normal activities tomorrow. Written discharge instructions were provided to the patient. - High fiber diet. - Continue present medications. - Return to referring physician. - [facility] care. - Use Prilosec (omeprazole) 40 mg PO daily. - The findings and recommendations were discussed with the patient. Tree Mcneal MD Tree Mcneal MD 03/27/2019 10:07:31 AM Electronically signed by Tree Mcneal MD Number of Addenda: 0 Note Initiated On: 03/27/2019 8:36 AM Estimated Blood Loss: Estimated blood loss: none.
--- NOTE | 2019-03-27 10:11 | ROOR ---
Patient Name: Roula Oliver Procedure Date: 03/27/2019 9:19 AM Date of : 1955 Age: 63 Gender: Female Note Status: Finalized Procedure: Total Colonoscopy to Cecum Indications: Acute post hemorrhagic anemia, Iron deficiency anemia Providers: Tree Mcneal MD Referring MD: 1. No Referring Physician 1. No Referring Physician, Admin. Requesting Provider: 1. No Referring Physician 1. No Referring Physician, Admin. Medicines: Monitored Anesthesia Care Complications: No immediate complications. Procedure: Pre-Anesthesia Assessment: - The heart rate, respiratory rate, oxygen saturations, blood pressure, adequacy of pulmonary ventilation, and response to care were monitored throughout the procedure. The Colonoscope was introduced through the anus and advanced to the cecum, identified by appendiceal orifice and ileocecal valve. The colonoscopy was performed without difficulty. The patient tolerated the procedure well. The quality of the bowel preparation was excellent. Findings: The perianal and digital rectal examinations were normal. Non-bleeding internal hemorrhoids were found during retroflexion. The hemorrhoids were small and Grade I (internal hemorrhoids that do not prolapse). Multiple small and large-mouthed diverticula were found in the recto-sigmoid colon, sigmoid colon and descending colon. The exam was otherwise without abnormality on direct and retroflexion views. Impression: - Non-bleeding internal hemorrhoids. - Diverticulosis in the recto-sigmoid colon, in the sigmoid colon and in the descending colon. - The examination was otherwise normal on direct and retroflexion views. - No specimens collected. - The exam was otherwise normal to the cecum. Recommendation: - Patient has a contact number available for emergencies. The signs and symptoms of potential delayed complications were discussed with the patient. Return to normal activities tomorrow. Written discharge instructions were provided to the patient. - High fiber diet. - Discharge patient to home. - Continue present medications. - Repeat colonoscopy in 10 years for screening purposes. - Return to referring physician. - The findings and recommendations were discussed with the patient's family. Tree Mcneal MD Tree Mcneal MD 03/27/2019 10:11:01 AM Electronically signed by Tree Mcneal MD Number of Addenda: 0 Note Initiated On: 03/27/2019 9:19 AM Estimated Blood Loss: Estimated blood loss: none.
[2019-03-27 10:15] VITALS: BP 152/63
--- NOTE | 2019-03-27 10:31 | IPNPDOC ---
Subjective Date Seen The patient was seen on 03/27/19. Subjective Chief Complaint/HPI Patient just returned from endoscopy suite possibly to regular diet. Offers no new complaints General: Denies: ROS Unobtainable, Chills, Night Sweats, Fatigue, Malaise, Normal Appetite, Other Symptoms Constitutional: Denies: Chills, Fever, Malaise, Night Sweats, Weakness, Fatigue, Weight Loss, Lethargy, Other Pulmonary: Denies: Dyspnea, Cough, Pleuritic Chest Pain, Other Symptoms Cardiovascular: Denies: Chest Pain, Palpitations, Orthopnea, Paroxysmal Noc. Dyspnea, Edema, Lt Headedness, Other Symptoms Gastrointestinal: Denies: Nausea, Vomiting, Abdominal Pain, Diarrhea, Constipation, Melena, Hematochezia, Other Symptoms Musculoskeletal: Denies: Neck Pain, Back Pain, Shoulder Pain, Arm Pain, Hand Pain, Leg Pain, Foot Pain, Joint Pain, Muscle Pain, Spasms, Other Symptoms Neurological: Denies: Weakness, Numbness, Incoordination, Change in speech, Confusion, Seizures, Other Symptoms Objective Physical Examination Neck Exam: Positive: Supple, JVD Chest Exam: Positive: Clear to auscultation, Normal air movement, Rales, Rhonchi, Wheezing, Diminished, Other Heart Exam: Positive: Rate Normal, Normal S1, Normal S2 Abdomen Exam: Positive: Normal bowel sounds, Soft, Tenderness Extremity Exam: Positive: Normal pulses Skin Exam: Positive: Nl turgor and temperature Neuro Exam: Positive: Normal Speech, Strength at 5/5 X4 ext, Sensation Intact Assessment /Plan Problems (1) Acute blood loss anemia Status: Acute Problem Text: 63 years old white female with past medical history of CAD, PAD, status post cataract surgeries, status post CABG, status post right carotid endarterectomy was in her usual state of health until November when she started noticing dark stools when she defecated. Initially there were small in quantity but progressively increased to all became tarry black in color. Patient denies abdominal pain, nausea, vomiting, chest pain, shortness of breath, etc. Patient is being admitted to PCU for blood transfusion and GI workup , Hemoglobin 6.7 on admission Patient received 2 units of PRBC tonight to go Patient's hemoglobin is 9, hematocrit 28.7 today Patient had a EGD, colonoscopy done. Official report is pending Depends on patient's reports, we will proceed further workup or discharges as needed (2) GI bleeding Status: Acute Problem Text: DC IV fluids Action is improved after transfusion of 2 units of PRBC Protonix 40 mg IV every 12 hours Progress diet to regular diet Date stockings for DVT prophylaxis Patient had a EGD, colonoscopy done today report pending (3) PAD (peripheral artery disease) Status: Chronic Problem Text: Restart aspirin . The all home meds (4) CAD (coronary artery disease) Status: Chronic Problem Text: Restart aspirin Continue all other home meds except hydrochlorothiazide Plan/VTE VTE Prophylaxis Ordered?: Yes VS, I&O, 24H, Fishbone Vital Signs/I&O Vital Signs Date Time Temp Pulse Resp B/P (MAP) Pulse Ox O2 Delivery O2 Flow Rate FiO2 03/27/19 09:55 101 18 140/57 (84) 97 03/27/19 09:54 97 03/25/19 11:13 Room Air I&O- Last 24 Hours up to 6 AM 03/27/19 06:00 Intake Total 1950 ml Output Total 0 ml Balance 1950 ml Laboratory Data 24H LABS Laboratory Tests 2 03/27/19 05:18: Immature Granulocyte % (Auto) 0.4, White Blood Count 7.8, Red Blood Count 3.53L, Hemoglobin 9.0L, Hematocrit 28.7L, Mean Corpuscular Volume 81.3, Mean Corpuscula r Hemoglobin 25.5L, Mean Corpuscular Hemoglobin Concent 31.4L, Red Cell Distribution Width 16.2H, Platelet Count 427, Neutrophils (%) (Auto) 73.0H, Lymphocytes (%) (Auto) 12.4L, Monocytes (%) (Auto) 11.1H, Eosinophils (%) (Auto) 2.5, Basophils (%) (Auto) 0.6, Neutrophils # (Auto) 5.7, Lymphocytes # (Auto) 1.0L, Monocytes # (Auto) 0.9H, Eosinophils # (Auto) 0.2, Basophils # (Auto) 0.1, Nucleated Red Blood Cells % (auto) 0.0, Anion Gap 7L, Glomerular Filtration Rate > 60.0, Blood Urea Nitrogen 11, Creatinine 0.73, Sodium Level 137, Potassium Level 3.6, Chloride Level 103, Carbon Dioxide Level 27, Calcium Level 8.7L, Aspartate Amino Transf (AST/SGOT) 24, Alanine Aminotransferase (ALT/SGPT) 18, Alkaline Phosphatase 72, Total Bilirubin 0.4, Total Protein 7.4, Albumin 3.3, Albumin/Globulin Ratio 0.80L CBC/BMP Laboratory Tests 03/27/19 05:18 Red Blood Count 3.53 L, Mean Corpuscular Volume 81.3, Mean Corpuscular Hemoglobin 25.5 L, Mean Corpuscular Hemoglobin Concent 31.4 L, Red Cell Distribution Width 16.2 H, Neutrophils (%) (Auto) 73.0 H, Lymphocytes (%) (Auto) 12.4 L, Monocytes (%) (Auto) 11.1 H, Eosinophils (%) (Auto) 2.5, Basophils (%) (Auto) 0.6, Neutrophils # (Auto) 5.7, Lymphocytes # (Auto) 1.0 L, Monocytes # (Auto) 0.9 H, Eosinophils # (Auto) 0.2, Basophils # (Auto) 0.1, Calcium Level 8.7 L, Aspartate Amino Transf (AST/SGOT) 24, Alanine Aminotransferase (ALT/SGPT) 18, Alkaline Phosphatase 72, Total Bilirubin 0.4, Total Protein 7.4, Albumin 3.3 YULISA LARRY MD Mar 27, 2019 10:31
[2019-03-27] MEDS ORDERED: ASPIRIN 81 MG ENTERIC TAB PO SCH (11:00)
[2019-03-27 11:15] VITALS: BP 152/63
[2019-03-27] MEDS: ATORVASTATIN 20 MG TAB PO SCH (11:15)
[2019-03-27] MEDS: NIFEdipine 30 MG XL TAB PO SCH (11:15)
[2019-03-27] MEDS: LOSARTAN 50 MG TAB PO SCH (11:15)
[2019-03-27] MEDS: METOPROLOL SUCC (TopROL XL) 100MG *XL* TAB PO SCH (11:15)
[2019-03-27] MEDS: VENLAFAXINE 37.5 MG TAB PO SCH (11:15)
[2019-03-27] MEDS: ISOSORBIDE MON. (IMDUR) 30 MG XR TAB PO SCH (11:15)
[2019-03-27] MEDS ORDERED: PROT20TA11 PO (12:40)
--- NOTE | 2019-03-27 12:51 | DS.PDOC ---
Discharge Summary General Date of Admission Mar 25, 2019 at 14:18 Date of Discharge 03/27/19 Attending Physician: YULISA LARRY MD Discharge Summary PROCEDURES PERFORMED DURING STAY: EGD and colonoscopy ADMITTING DIAGNOSES: 1. Acute blood loss anemia. Upper GI bleed. DISCHARGE DIAGNOSES: 1. Acute blood loss anemia, upper GI bleed, CAD. COMPLICATIONS/CHIEF COMPLAINT: Acute Anemia,Gi Bleeding. HISTORY OF PRESENT ILLNESS: 63 years old white female with past medical history of CAD, PAD, status post cataract surgeries, status post CABG, status post right carotid endarterectomy was in her usual state of health until November when she started noticing dark stools when she defecated. Initially there were small in quantity but progressively increased to all became tarry black in color. Patient denies abdominal pain, nausea, vomiting, chest pain, shortness of breath, etc. Patient is being admitted to PCU for blood transfusion and GI workup Hemoglobin is 6.7 on admission. HOSPITAL COURSE: Sugar admitted with the acute blood loss anemia and possibly u pper GI bleed, most likely secondary to brilinta. Initially patient received 2 units of PRBC transfusion with improved hemoglobin of more than 9 and she was kept on her clear liquid diets and IV fluids. Patient was seen by Dr. Mcneal and had a EGD and endoscopy done with the diverticulosis and no ulcerations were noted. Patient is has no evidence of any active bleeding. She can be discharged home on all her home meds including by mouth aspirin 81 mg by mouth daily and patient was asked to hold Brilinta this. She sees her fleecer and continue PPI for at least 6 weeks..pt is been advised to follow with Dr. Mcneal in one-week time. DISCHARGE MEDICATIONS: Please see below. ALLERGIES: Please see below. PHYSICAL EXAMINATION ON DISCHARGE: VITAL SIGNS: Please see below. GENERAL: Within normal limits HEENT: PERRLA NECK: Supple CARDIOVASCULAR EXAMINATION: S1, S2, regular RESPIRATORY EXAMINATION: Clear to A&P ABDOMINAL EXAMINATION: Benign EXTREMITIES: No clubbing, cyanosis, edema SKIN: Normal NEUROLOGICAL EXAMINATION: . No focal motor sensory deficit PSYCHIATRIC EXAMINATION: nl LABORATORY DATA: Please see below. IMAGING: None PROGNOSIS: [Good ACTIVITY: As tolerated. DIET: As tolerated DISCHARGE PLAN: DC home DISPOSITION: . Home DISCHARGE INSTRUCTIONS: 1. As per discharge instructions. ITEMS TO FOLLOWUP ON ON OUTPATIENT: 1. Follow Dr. Mcneal in one week. DISCHARGE CONDITION: Stable. TIME SPENT ON DISCHARGE: 42 minutes. Vital Signs/I&Os Vital Signs Date Time Temp Pulse Resp B/P (MAP) Pulse Ox O2 Delivery O2 Flow Rate FiO2 03/27/19 11:15 152/63 03/27/19 10:15 96 18 97 03/27/19 09:54 97 03/25/19 11:13 Room Air I&O- Last 24 Hours up to 6 AM 03/27/19 05:59 Intake Total 1950 ml Output Total 0 ml Balance 1950 ml Laboratory Data Labs 24H Laboratory Tests 2 03/27/19 05:18: Immature Granulocyte % (Auto) 0.4, White Blood Count 7.8, Red Blood Count 3.53L, Hemoglobin 9.0L, Hematocrit 28.7L, Mean Corpuscular Volume 81.3, Mean Corpuscular Hemoglobin 25.5L, Mean Corpuscular Hemoglobin Concent 31.4L, Red Cell Distribution Width 16.2H, Platelet Count 427, Neutrophils (%) (Auto) 73.0H, Lymphocytes (%) (Auto) 12.4L, Monocytes (%) (Auto) 11.1H, Eosinophils (%) (Auto) 2.5, Basophils (%) (Auto) 0.6, Neutrophils # (Auto) 5.7, Lymphocytes # (Auto) 1.0L, Monocytes # (Auto) 0.9H, Eosinophils # (Auto) 0.2, Basophils # (Auto) 0.1, Nucleated Red Blood Cells % (auto) 0.0, Anion Gap 7L, Glomerular Filtration Rate > 60.0, Blood Urea Nitrogen 11, Creatinine 0.73, Sodium Level 137, Potassium Level 3.6, Chloride Level 103, Carbon Dioxide Level 27, Calcium Level 8.7L, Aspartate Amino Transf (AST/SGOT) 24, Alanine Aminotransferase (ALT/SGPT) 18, Alkaline Phosphatase 72, Total Bilirubin 0.4, Total Protein 7.4, Albumin 3.3, Albumin/Globulin Ratio 0.80L CBC/BMP Laboratory Tests 03/27/19 05:18 Red Blood Count 3.53 L, Mean Corpuscular Volume 81.3, Mean Corpuscular Hemoglobin 25.5 L, Mean Corpuscular Hemoglobin Concent 31.4 L, Red Cell Distribution Width 16.2 H, Neutrophils (%) (Auto) 73.0 H, Lymphocytes (%) (Auto) 12.4 L, Monocytes (%) (Auto) 11.1 H, Eosinophils (%) (Auto) 2.5, Basophils (%) (Auto) 0.6, Neutrophils # (Auto) 5.7, Lymphocytes # (Auto) 1.0 L, Monocytes # (Auto) 0.9 H, Eosinophils # (Auto) 0.2, Basophils # (Auto) 0.1, Calcium Level 8.7 L, Aspartate Amino Transf (AST/SGOT) 24, Alanine Aminotransferase (ALT/SGPT) 18, Alkaline Phosphatase 72, Total Bilirubin 0.4, Total Protein 7.4, Albumin 3.3 Discharge Medications Scheduled Aspirin (Aspir 81) 81 Mg Tablet.dr, 81 MG PO DAILY, (Reported) Atorvastatin Calcium (Atorvastatin Calcium) 80 Mg Tablet, 80 MG PO DAILY, (Rep orted) Hydrochlorothiazide (Hydrochlorothiazide) 12.5 Mg Capsule, 12.5 MG PO DAILY, (Reported) Isosorbide Mononitrate (Isosorbide Mononitrate ER) 30 Mg Tab.er.24h, 30 MG PO DAILY, (Reported) Losartan Potassium (Losartan Potassium) 50 Mg Tablet, 50 MG PO DAILY, (Reported) Metoprolol Succinate (Metoprolol Succinate) 100 Mg Tab.er.24h, 100 MG PO DAILY, (Reported) Nifedipine (Nifedipine ER) 30 Mg Tab.er.24, 30 MG PO DAILY, (Reported) Pantoprazole Sodium (Protonix) 20 Mg Tablet.dr, 20 MG PO DAILY Ticagrelor (Brilinta) 60 Mg Tablet, 60 MG PO BID, (Reported) Venlafaxine HCl (Venlafaxine HCl) 37.5 Mg Tablet, 37.5 MG PO BID, (Reported) Scheduled PRN Fluticasone/Vilanterol (Breo Ellipta 100-25 Mcg INH) 1 Each Blst.w.dev, 1 PUFF INH DAILY PRN for SHORTNESS OF BREATH, (Reported) PATIENT STATES SHE USES PRN Allergies Coded Allergies: No Known Allergies (Unverified , 01/04/19) YULISA LARRY MD Mar 27, 2019 12:51
--- NOTE | 2019-03-27 17:49 | CR ---
DATE OF CONSULTATION: 03/27/2019 This is a 63-year-old white female admitted to [facility] for evaluation of melena and anemia. The patient presents with a past medical history of coronary artery disease, peripheral artery disease, status post cataract surgeries and coronary artery bypass graft (CABG). The patient is status post right carotid endarterectomy, was feeling fairly well until November when she started having dark stools. She noticed that the stools were black in nature. She apparently has not been taking iron medications. No complaints of abdominal pain, nausea, vomiting, fevers, night sweats, shaking chills. The patient was brought into [facility] for fatigue and was found to have a hemoglobin of 6.7. The patient was given 2 units of packed cells upon admission. The patient is being asked to be seen by gastroenterology for evaluation of possible source of her anemia and bleeding. MEDICATIONS AT HOME INCLUDE: 81 mg of aspirin, atorvastatin, hydrochlorothiazide, isordil, losartan, metoprolol, nifedipine, Brilinta 60 mg by mouth twice a day and venlafaxine by mouth twice a day. ALLERGIES: No known declared allergies. PAST MEDICAL HISTORY: As previously dictated FAMILY HISTORY: Noncontributory to the above problem. SOCIAL HISTORY: The patient is a former smoker, stopped smoking in November 2018. Alcohol none. Drugs none. REVIEW OF SYSTEMS: Noncontributory to the above problem. General: She is a well-developed, well-nourished white female in no obvious acute distress. Appears stated age. Chest is clear to auscultation. Cardiovascular exam showed a regular rhythm. No murmurs or gallops. Normal physiological split, S1-S2. Abdomen soft, nontender. No masses, guarding, rebound, hepatosplenomegaly. Bowel sounds positive. Laboratory studies on admission showed a hemoglobin of 6.7, hematocrit 21.5. The patient was given 2 units of packed cells and blood count today on 03/27 was 9.0 and 28.7. The patient's INR was 1.08. The patient's liver functions were completely within normal limits. Albumin is 3.3. Renal function is normal. IMAGING STUDIES: No imaging studies were performed on this admission. ANALYSIS: Anemia, melena of unknown etiology present time. Plan will be to set the patient up for upper and lower endoscopy for evaluation of the possible source of the patient's bleeding, most likely a gastropathy due to her Brilinta which is an antiplatelet drugs similar to Plavix. Plan will be to set the patient up for an upper and lower endoscopy for further evaluation.
== END 2019-03-27 14:30 | disposition home or self-care (01) | DRG 812 ==
LOC: M ED 11:12 → M ED INP 14:18 → M PCU 15:36
PROVIDERS: ADMIT Internal Medicine; ATTEND Internal Medicine
PROC: 30233N1 Transfusion of Nonautologous Red Blood Cells into Peripheral Vein, Percutaneous Approach (ICD-10-PCS; 2019-03-25)
PROC: 0DJD8ZZ Inspection of Lower Intestinal Tract, Via Natural or Artificial Opening Endoscopic (ICD-10-PCS; 2019-03-27)
PROC: 0DJ08ZZ Inspection of Upper Intestinal Tract, Via Natural or Artificial Opening Endoscopic (ICD-10-PCS; principal; 2019-03-27 08:30)
DX: D62 Acute posthemorrhagic anemia (principal); K92.2 Gastrointestinal hemorrhage, unspecified; I73.9 Peripheral vascular disease, unspecified; I25.10 Atherosclerotic heart disease of native coronary artery without angina pectoris; Z79.82 Long term (current) use of aspirin; Z79.899 Other long term (current) drug therapy; Z95.1 Presence of aortocoronary bypass graft; Z87.891 Personal history of nicotine dependence; Z98.49 Cataract extraction status, unspecified eye; K44.9 Diaphragmatic hernia without obstruction or gangrene; K29.70 Gastritis, unspecified, without bleeding; K64.0 First degree hemorrhoids; K57.30 Diverticulosis of large intestine without perforation or abscess without bleeding

== ENCOUNTER → 2019-03-25 | Outpatient (CLI) | payer OTHER ==
[~2019-03-25] MED LIST changes: -ACETAMINOPHEN 325 MG TAB PO PRN; +ASPI81TA85 PO; -BALANCED SALT IRRIGATION SOLUTION 500ML BAG (FOR OR EYE MACHINE) As Ordered ONE; +BREO1INH INH; +BRIL1TAB PO; -CEFUROXIME 1MG/0.1ML INTRACAMERAL INJ As Ordered ONE; -CYCLOPENTOLATE 2% OPHTH SOLN 2ML BTL OD ONE; -HEALON DUET PRO(HEALON 10MG/ML 0.55ML & HEALON ENDOCOAT 30MG/ML 0.85ML) As Ordered ONE; -LIDOCAINE 1% SDV 5 ML VIAL As Ordered ONE; -LIDOCAINE 3.5 % 1ML OPHTH TOPICAL GEL OU ONE; -MIDAZOLAM INJ 2 MG/2 ML VIAL (J2250) As Ordered ONE; +NIFE30TA7 PO; -OFLOXACIN 0.3 % (OCUFLOX) OPTH SOL 5ML OD ONE; -PHENYLEPHRINE 2.5% OPHTH SOL 2ML OD ONE; -PHENYLEPHRINE HCL 10 % OPHTH. SOL 5ML OD PRN; -POVIDONE-IODINE 5% OPHTH PREP SOL 30ML As Ordered ONE; -PROPARACAINE 0.5% OPHTH SOL 15ML OD PRN; +PROT20TA11 PO; -TROPICAMIDE 1% OPHTH SOLN 2ML OD ONE; -fentaNYL 100 MCG/2 ML INJECTION (J3010) As Ordered ONE
[2019-03-25 10:31] LABS: BASO # 0.1 10^3/uL (0.0-0.2); BASO % 0.9 % (0.0-1.0); EOS # 0.2 10^3/uL (0.0-0.5); EOS % 2.2 % (0.0-3.0); HEMATOCRIT 22.4 % (36.0-47.0); LYMPH # 1.5 10^3/uL (1.5-5.0); LYMPH % 17.8 % (24.0-44.0); MEAN CORPUSCULAR HGB CONC 30.4 g/dl (32.0-36.5); MEAN CORPUSCULAR VOLUME 79.2 fl (80.0-96.0); MONO % 12.1 % (0.0-5.0); NEUTROPHILS # 5.7 10^3/uL (1.5-8.5); NEUTROPHILS % 66.3 % (36.0-66.0); PLATELET COUNT, AUTOMATED 514 10^3/uL (150-450); RED BLOOD COUNT 2.83 10^6/uL (4.00-5.40); WHITE BLOOD COUNT 8.6 10^3/uL (4.0-10.0)
[2019-03-25 10:33] LABS: HEMOGLOBIN 6.8 g/dl (12.0-15.5)
== END ==
LOC: M LAB 09:10
PROVIDERS: ATTEND Nurse Practitioner Family
DX: D64.9 Anemia, unspecified (principal)

== ENCOUNTER → 2019-03-29 | Outpatient (REF) | payer OTHER ==
[~2019-03-29] MED LIST changes: +ASPI81TA85 PO; +BREO1INH INH; +BRIL1TAB PO; +NIFE30TA7 PO; +PROT20TA11 PO
[2019-03-29 19:59] LABS: BASO # 0.1 10^3/uL (0.0-0.2); BASO % 0.8 % (0.0-1.0); EOS # 0.1 10^3/uL (0.0-0.5); EOS % 1.5 % (0.0-3.0); HEMATOCRIT 27.6 % (36.0-47.0); HEMOGLOBIN 8.6 g/dl (12.0-15.5); MEAN CORPUSCULAR HEMOGLOBIN 26.3 pg (27.0-33.0); MEAN CORPUSCULAR HGB CONC 31.2 g/dl (32.0-36.5); MEAN CORPUSCULAR VOLUME 84.4 fl (80.0-96.0); MONO # 1.3 10^3/uL (0.0-0.8); MONO % 14.8 % (0.0-5.0); NEUTROPHILS # 6.4 10^3/uL (1.5-8.5); NEUTROPHILS % 71.5 % (36.0-66.0); PLATELET COUNT, AUTOMATED 415 10^3/uL (150-450); RED BLOOD COUNT 3.27 10^6/uL (4.00-5.40); WHITE BLOOD COUNT 8.9 10^3/uL (4.0-10.0)
== END ==
LOC: M LABDRWAD 18:54
PROVIDERS: ATTEND Internal Medicine Gastroenterology
DX: D64.9 Anemia, unspecified (principal)

== ENCOUNTER → 2019-05-10 | Outpatient (CLI) | payer OTHER ==
[~2019-05-10] MED LIST changes: +IFERCAP PO; +ISOVUE-370 76% 100ML VIAL (Q9967) As Ordered ONE
--- NOTE | 2019-05-11 09:26 | REP ---
Clinical: Adrenal neoplasm. Technique: Axial portal venous phase images of the abdomen and pelvis along with precontrast and 15-minute delayed phase images of the abdomen. Coronal and sagittal re-formations obtained. 100 ml Isovue 370 intravenous contrast material administered without complication. Comparison: 07/20/2009. Findings: The bilateral adrenal glands are normal in appearance and exhibit normal enhancement and washout patterns without mass lesion or abnormality. Liver, spleen, pancreas, gallbladder, and bilateral kidneys are normal. The enteric system is without obstruction or acute inflammatory process. Pelvis demonstrates normal bladder and age-appropriate uterus/adnexa. No ascites. No free air. No adenopathy. Atherosclerotic changes to the aorta and vasculature noted without aneurysm or dissection. Musculoskeletal structures are intact. Lung bases demonstrate minimal right basilar dependent change/atelectasis. Impression: 1. Normal bilateral adrenal glands. 2. No obvious acute abdominopelvic pathology appreciated. Electronically Signed by Lacho Loo MD 05/11/2019 09:17 A
== END ==
LOC: M RAD 14:52
PROVIDERS: ATTEND Physician Assistant
DX: D44.10 Neoplasm of uncertain behavior of unspecified adrenal gland (principal)

== ENCOUNTER → 2019-12-09 | Outpatient (CLI) | payer OTHER ==
[~2019-12-09] MED LIST changes: -ISOVUE-370 76% 100ML VIAL (Q9967) As Ordered ONE; +ISOVUE-370 76% 100ML VIAL As Ordered ONE; +NIFE1TAB52 PO; -NIFE30TA7 PO
--- NOTE | 2019-12-13 06:31 | REP ---
Clinical: Symptoms related to atherosclerotic disease. History of prior left bypass graft. Technique: Axial angiographic images obtained from the lower abdomen through the bilateral lower extremities using 100 ml Isovue 70 intravenous contrast material. Coronal and sagittal re-formations, coronal and sagittal MIP reconstructions, and volume rendered 3-D angiograms of the bilateral lower extremity arteries obtained. Comparison: 02/26/2011. Findings: Significant mixed partially calcified atheromatous plaquing involves the visualized mid to distal aorta and bilateral common iliac arteries along with moderate atheromatous plaquing to the more distal arteries through the pelvis including the bilateral common femoral arteries. LEFT LOWER EXTREMITY: There is a relatively normal-appearing, patent left femoral - popliteal artery bypass graft. The belkofski left femoral artery is completely occluded. The left profunda femoris artery and branch vessels appear patent. Left popliteal artery is recanalized at the level of the anastomosis with subsequent patent trifurcation. There is relatively symmetric stable decreased caliber to the left anterior tibial, posterior tibial, and peroneal arteries with three-vessel runoff to the level of the distal calf/proximal ankle followed by a relatively dominant posterior tibial artery with near complete nonvisualization of the anterior tibial and peroneal arteries through the ankle and foot. RIGHT LOWER EXTREMITY: Mild/moderate mixed atheromatous plaquing of the common femoral artery and femoral artery to the level of the popliteal artery is noted, but with essentially satisfactory enhancement and no evidence for occlusion. The right profunda femoris and branch vessels are patent. Right popliteal artery appears normal followed by a relatively symmetric stable decreased caliber through the trifurcation and three-vessel runoff is noted to the ankle at which point the peroneal artery is barely visible and the anterior and posterior tibial arteries demonstrate diminished caliber through the ankle and foot. Visualized portions of the visualized lower abdomen and pelvis demonstrate nonspecific bowel gas pattern. No ascites. Bladder is unremarkable. Uterus and adnexa are age-appropriate. No obvious adenopathy. Musculoskeletal structures without acute abnormality. Impression: Lower extremity angiogram findings as described in detail above. Electronically Signed by Lacho Loo MD 12/13/2019 06:23 A
== END ==
LOC: M RAD 14:48
PROVIDERS: ATTEND Surgery Vascular Surgery
DX: I70.512 Atherosclerosis of nonautologous biological bypass graft(s) of the extremities with intermittent claudication, left leg (principal)
CPT/HCPCS: 73706; Q9967

== ENCOUNTER 2020-02-27 19:37 | Emergency (ER) | payer OTHER ==
[~2020-02-27] VITALS: Ht 152.4 cm; Wt 78.5 kg
[~2020-02-27 19:37] MED LIST changes: -ASPI81TA85 PO; +ASPI81TA86 PO; -ISOVUE-370 76% 100ML VIAL As Ordered ONE; +PLAV1TAB2 PO
--- NOTE | 2020-02-27 22:38 | REPVR ---
PROCEDURE INFORMATION: Exam: US Duplex Right Lower Extremity Veins, Limited Exam date and time: 02/27/2020 10:29 PM Age: 64 years old Clinical indication: Swelling (edema) of limb; Lower extremity, right; Prior surgery; Surgery date: <1 month; Surgery type: Vascular surgery, patient not sure what TECHNIQUE: Imaging protocol: Real-time Duplex ultrasound of the Right Lower Extremity with 2-D lennon scale, color Doppler flow and spectral waveform analysis with image documentation. Limited exam was focused on the right lower extremity veins. COMPARISON: No relevant prior studies available. FINDINGS: Right deep veins: Unremarkable. The common femoral, femoral, proximal profunda femoral and popliteal veins are patent without thrombus. Normal Doppler waveforms. Normal compressibility and/or augmentation response. Right superficial veins: Unremarkable. Saphenofemoral junction is patent without thrombus. Soft tissues: Fluid collection in the right groin region measuring 3 x 2.9 x 4 cm corresponding to the area of incision, likely a postoperative hematoma. No vascular flow within the fluid collection to suggest pseudoaneurysm or complication. Abscess not excluded. IMPRESSION: 1. Negative for DVT. 2. Fluid collection in the right groin region measuring 3 x 2.9 x 4 cm corresponding to the area of incision, likely a postoperative hematoma. No vascular flow within the fluid collection to suggest pseudoaneurysm or complication. Abscess not excluded. Electronically signed by: Kem Ag On 02/27/2020 22:39:07 PM
[2020-02-27 23:47] VITALS: BP 170/73
== END 2020-02-27 23:50 | disposition left against medical advice (07) ==
LOC: M ED 19:37
DX: I97.638 Postprocedural hematoma of a circulatory system organ or structure following other circulatory system procedure (principal); Y82.8 Other medical devices associated with adverse incidents; T81.31XA Disruption of external operation (surgical) wound, not elsewhere classified, initial encounter; M25.471 Effusion, right ankle; I10 Essential (primary) hypertension; E78.5 Hyperlipidemia, unspecified; I25.2 Old myocardial infarction; Z95.1 Presence of aortocoronary bypass graft; F17.200 Nicotine dependence, unspecified, uncomplicated; Z79.899 Other long term (current) drug therapy; Z79.01 Long term (current) use of anticoagulants; Z79.82 Long term (current) use of aspirin

== ENCOUNTER → 2020-10-29 | Outpatient (CLI) | payer OTHER ==
[~2020-10-29] MED LIST changes: +E-Z-GAS II EFFERVESCENT PACKET (SODIUM BICARB./CITRIC ACID/SIMETHICONE) As Ordered ONE; +E-Z-HD 98% w/w 340GM SUSP BTL As Ordered ONE; +E-Z-PAQUE 96% w/w SUSP 176GM BTL As Ordered ONE; +ISOS1TAB35 PO; -ISOS30TA4 PO
--- NOTE | 2020-10-29 14:31 | REP ---
INDICATION: ANEMIA. COMPARISON: None. TECHNIQUE: The procedure was performed under the direct supervision of Dr. Hernandez. The images were reviewed with Dr. Hernandez. Liquid barium and gas producing crystals were given in the erect position as well as liquid barium in the prone oblique position in order to perform a double contrast upper GI examination. Additionally liquid barium was given at the end of the examination in order to perform a small bowel follow through. A combination od fluoroscopy, spot films and last image hold technology was utilized, 2.6 minutes of fluoro time was utilized for this procedure. Liquid barium was administered in the left lateral recumbent AP supine and right lateral recumbent positions. FINDINGS: The sheet rock sander film shows no organomegaly or pathological masses. The intestinal gas pattern is non-specific. There is a vascular stent seen in the right pelvis. The oral and pharyngeal stages of deglutition are unremarkable. Esophageal transport is prompt and efficient and there is no esophagitis, stricture, mucosal ring or hiatal hernia. The stomach lim are normally outlined. The rugal folds are smooth and regular. There is no gastritis neoplasm or ulcer disease. There are thickened folds in the duodenum which may represent duodenitis. There is no denice ulcer identified. The visualized portion of the proximal small bowel appears normal in course and caliber. The barium column was followed through the small bowel to the level of the terminal ileum. Small bowel transit time is approximately 30 minutes. During fluoroscopy gentle palpation shows all loops are freely movable and pliable. There are no fixed or angulated loops. The small bowel mucosal pattern is normal in course and caliber. There is no transition to suggest a partial small-bowel obstruction. Spot filming of the terminal ileum shows it to be unremarkable. IMPRESSION: There are thickened folds in the duodenum which may represent duodenitis. There is no denice ulcer identified. Otherwise, unremarkable double contrast upper GI and small bowel follow through examination. <Electronically signed by Renny Spring > 10/29/20 1420 <Electronically signed by Julio C Hernandez > 10/29/20 [id number]
== END ==
LOC: M RAD 09:35
PROVIDERS: ATTEND Internal Medicine Gastroenterology
DX: D64.9 Anemia, unspecified (principal)

== ENCOUNTER → 2022-12-31 | Outpatient (CLI) | payer OTHER ==
[~2022-12-31] MED LIST changes: +BUPR-71 PO; -BUPR150T5 PO; +CLOP75TA99 PO; -E-Z-GAS II EFFERVESCENT PACKET (SODIUM BICARB./CITRIC ACID/SIMETHICONE) As Ordered ONE; -E-Z-HD 98% w/w 340GM SUSP BTL As Ordered ONE; -E-Z-PAQUE 96% w/w SUSP 176GM BTL As Ordered ONE; +LOSA50TA28 PO; -LOSA50TA88 PO; -PLAV1TAB2 PO
== END ==
LOC: M RAD 09:26
PROVIDERS: ATTEND Nurse Practitioner Family
DX: Z87.891 Personal history of nicotine dependence (principal)

== ENCOUNTER 2023-03-09 10:12 | Emergency (ER) | payer OTHER ==
[~2023-03-09] VITALS: Ht 152.4 cm; Wt 72.3 kg
[2023-03-09 10:13] VITALS: TEMP 98.5; O2SAT 95
[2023-03-09 10:18] VITALS: BP 151/67
== END 2023-03-09 14:06 | disposition home or self-care (01) ==
LOC: M ED 10:12
DX: L76.34 Postprocedural seroma of skin and subcutaneous tissue following other procedure (principal); T81.31XA Disruption of external operation (surgical) wound, not elsewhere classified, initial encounter; I25.2 Old myocardial infarction; I10 Essential (primary) hypertension; D64.9 Anemia, unspecified; F32.A Depression, unspecified; F41.9 Anxiety disorder, unspecified; Z79.82 Long term (current) use of aspirin; Z79.899 Other long term (current) drug therapy

== ENCOUNTER 2023-03-12 12:08 | Emergency (ER) | payer OTHER ==
[~2023-03-12] VITALS: Ht 152.4 cm; Wt 75.0 kg
[2023-03-12] MEDS ORDERED: ACETAMINOPHEN TAB 650MG DOSE (2X325MG) PO ONE (12:35)
[2023-03-12] MEDS ORDERED: PIPERACILLIN/TAZOBACTAM SOD 4.5 GM in D5W MINI-BAG PLUS 50 ML IV ONE (12:35)
[2023-03-12] MEDS ORDERED: NS 1,000 ML IV SCH (13:20)
[2023-03-12 13:27] LABS: BASO % 0.3 % (0.0-1.0); HEMATOCRIT 29.6 % (36.0-47.0); HEMOGLOBIN 9.9 g/dl (12.0-15.5); LYMPH # 0.1 10^3/uL (1.5-5.0); LYMPH % 0.8 % (24.0-44.0); MEAN CORPUSCULAR HEMOGLOBIN 29.6 pg (27.0-33.0); MEAN CORPUSCULAR HGB CONC 33.4 g/dl (32.0-36.5); MEAN CORPUSCULAR VOLUME 88.6 fl (80.0-96.0); MONO # 0.4 10^3/uL (0.0-0.8); MONO % 4.6 % (2.0-8.0); NEUTROPHILS # 9.1 10^3/uL (1.5-8.5); PLATELET COUNT, AUTOMATED 241 10^3/uL (150-450); RED BLOOD COUNT 3.34 10^6/uL (4.00-5.40); WHITE BLOOD COUNT 9.7 10^3/uL (4.0-10.0)
[2023-03-12 13:29] LABS: APPEARANCE, URINE CLOUDY (CLEAR); BACTERIA, URINE AUTO NEGATIVE (NEGATIVE); BILIRUBIN, URINE AUTO NEGATIVE (NEGATIVE); BLOOD, URINE BLOOD 2+ (NEGATIVE); COLOR, URINE AMBER (YELLOW); GLUCOSE, URINE (UA) AUTO NEGATIVE (NEGATIVE); KETONE, URINE AUTO NEGATIVE (NEGATIVE); LEUKOCYTE ESTERASE, URINE AUTO NEGATIVE (NEGATIVE); MUCUS, URINE SMALL (NEGATIVE); NITRITE, URINE AUTO NEGATIVE (NEGATIVE); PROTEIN, URINE AUTO 2+ mg/dL (NEGATIVE); RBC, URINE AUTO 1 /HPF (0-3); SPECIFIC GRAVITY URINE AUTO 1.017 (1.002-1.035); SQUAMOUS EPITHELIAL CELL UR AU 0 /HPF (0-6); UROBILINOGEN, URINE AUTO 0.2 mg/dL (0.0-2.0); WBC, URINE AUTO 2 /HPF (0-3)
[2023-03-12 13:43] LABS: INR 1.22; PROTHROMBIN TIME 15.1 SECONDS (12.5-14.5)
[2023-03-12 13:44] LABS: CK-MB VALUE MASS < 1.0 NG/ML (<3.6); PARTIAL THROMBOPLASTIN TIME 35.7 SECONDS (24.8-34.2)
[2023-03-12 13:46] LABS: CREATININE FOR GFR 1.57 MG/DL (0.55-1.30); GLOMERULAR FILTRATION RATE 35.1 (>45); POTASSIUM SERUM 3.3 MMOL/L (3.5-5.1)
[2023-03-12 13:47] LABS: ALKALINE PHOSPHATASE 64 U/L (46-116); ALT/SGPT 15 U/L (7.0-40); AST/SGOT 17 U/L (<34); BILIRUBIN,DIRECT 0.4 MG/DL (<0.4); BILIRUBIN,TOTAL 0.9 MG/DL (0.3-1.2); CPK CREATINE PHOSPHOKINASE 142 U/L (34-145); TOTAL PROTEIN 6.3 G/DL (5.7-8.2)
[2023-03-12 14:04] LABS: PLATELET ESTIMATE NORMAL (NORMAL)
[2023-03-12] MEDS ORDERED: POTASSIUM CHLORIDE 10MEQ SR TABLET PO ONE (14:15)
[2023-03-12] MEDS ORDERED: NS 1,000 ML IV ONE (14:40)
[2023-03-12] MEDS ORDERED: ONDANSETRON 4MG 2ML VIAL IV ONE (15:10)
[2023-03-12 17:11] VITALS: BP 106/58; TEMP 97.9; O2SAT 94
== END 2023-03-12 17:16 | disposition short-term general hospital (02) ==
LOC: EDBD 12:08 → M ED 12:08
DX: A41.9 Sepsis, unspecified organism (principal); R94.31 Abnormal electrocardiogram [ECG] [EKG]; R29.6 Repeated falls; I25.10 Atherosclerotic heart disease of native coronary artery without angina pectoris; I10 Essential (primary) hypertension; E78.5 Hyperlipidemia, unspecified; J44.9 Chronic obstructive pulmonary disease, unspecified; D50.9 Iron deficiency anemia, unspecified; F32.A Depression, unspecified; I73.9 Peripheral vascular disease, unspecified; Z87.891 Personal history of nicotine dependence; Z79.899 Other long term (current) drug therapy
CPT/HCPCS: 51701; 70450; 71045; 72125; 80048; 80076; 81001; 82550; 82553; 83605; 84443; 84484; 85025; 85610; 85730; 86850; 86900; 86901; 87040; 87077; 87086; 87186; 87486; 87581; 87633; 87798; 93005; 93041; 94760; 96361; 96365; 96366; 96375; 99285; J2405; J2543

== ENCOUNTER 2023-06-17 12:57 | Inpatient (IN) | payer OTHER ==
[2023-06-17] VITALS (9 sets, daily range): BP systolic 103–150; BP diastolic 52–66; TEMP 97.4–99.1; O2SAT 98–100
[~2023-06-17] VITALS: Ht 152.4 cm; Wt 58.2 kg
[2023-06-17] MEDS ORDERED: ELIQ5TAB PO (13:38)
[2023-06-17] MEDS ORDERED: FURO40TA2 PO (13:38)
[2023-06-17] MEDS ORDERED: POTA10CA60 PO (13:38)
[2023-06-17] MEDS ORDERED: PANT40TA29 (13:38)
[2023-06-17] MEDS ORDERED: AMIO200T49 PO (13:38)
[2023-06-17] MEDS ORDERED: HYDR-3910 PO (13:38)
[2023-06-17] MEDS ORDERED: GABA-1171 (13:38)
[2023-06-17] MEDS ORDERED: CEPH500C PO (13:38)
[2023-06-17] MEDS ORDERED: NS 1,770 ML in IV 1 EA IV ONE (13:45)
[2023-06-17 13:51] LABS: BASO # 0.1 10^3/uL (0.0-0.2); BASO % 0.6 % (0.0-1.0); EOS # 0.1 10^3/uL (0.0-0.5); LYMPH # 0.8 10^3/uL (1.5-5.0); LYMPH % 9.2 % (24.0-44.0); MEAN CORPUSCULAR HEMOGLOBIN 29.9 pg (27.0-33.0); MEAN CORPUSCULAR HGB CONC 33.3 g/dl (32.0-36.5); MEAN CORPUSCULAR VOLUME 89.7 fl (80.0-96.0); MONO # 0.6 10^3/uL (0.0-0.8); MONO % 6.9 % (2.0-8.0); NEUTROPHILS # 7.2 10^3/uL (1.5-8.5); PLATELET COUNT, AUTOMATED 329 10^3/uL (150-450); RED BLOOD COUNT 2.24 10^6/uL (4.00-5.40); WHITE BLOOD COUNT 8.8 10^3/uL (4.0-10.0)
[2023-06-17 13:56] LABS: HEMATOCRIT 20.1 % (36.0-47.0); HEMOGLOBIN 6.7 g/dl (12.0-15.5)
[2023-06-17 14:04] LABS: INR 1.74; PROTHROMBIN TIME 19.7 SECONDS (12.5-14.5)
[2023-06-17 14:14] LABS: CALCIUM LEVEL 8.8 MG/DL (8.3-10.6); CREATININE FOR GFR 1.65 MG/DL (0.55-1.30); GLOMERULAR FILTRATION RATE 33.1 (>45); MAGNESIUM LEVEL 1.7 MG/DL (1.8-2.4)
[2023-06-17 14:17] LABS: FREE T4 0.94 NG/DL (0.89-1.76)
[2023-06-17 14:26] LABS: RSV AMPLIFICATION NEGATIVE (NEGATIVE)
[2023-06-17] MEDS ORDERED: PANTOPRAZOLE 40MG VIAL IV ONE (15:05)
[2023-06-17 15:16] LABS: ALBUMIN 3.1 G/DL (3.2-5.2); BILIRUBIN,DIRECT 0.1 MG/DL (<0.4); BILIRUBIN,TOTAL 0.2 MG/DL (0.3-1.2); TOTAL PROTEIN 6.3 G/DL (5.7-8.2)
[2023-06-17] MEDS ORDERED: MED REC IN PROGRESS XX SCH (15:25)
[2023-06-17] MEDS ORDERED: POTASSIUM CHLORIDE 10MEQ SR TABLET PO ONE (15:50)
[2023-06-17] MEDS ORDERED: ALBU8.5H INH (16:03)
[2023-06-17] MEDS ORDERED: ISOS1TAB36 PO (16:03)
[2023-06-17] MEDS ORDERED: HOME MED LIST COMPLETE! XX SCH (16:20)
[2023-06-17] MEDS ORDERED: IPRATROPIUM 0.5MG/ALBUTEROL 2.5MG INH SOL UD 3ML (DUONEB) NEB PRN (17:00)
[2023-06-17 17:52] LABS: TOTAL T3 112.6 NG/DL (60.0-181.0)
[2023-06-17] MEDS: SUCRALFATE SUSP 1GM/10ML UD PO SCH ×2 (17:55→21:00)
[2023-06-17] MEDS ORDERED: MAG SULF 1GM/100ML (MAG RUN) 1 GM in IV 1 EA IV ONE (18:00)
[2023-06-17] MEDS ORDERED: VENL-102 PO (19:10)
[2023-06-17] MEDS: SYMBICORT 160/4.5MCG INHALER 6GM INH SCH (20:42)
[2023-06-17] MEDS: PANTOPRAZOLE 40MG VIAL IV SCH (20:58)
[2023-06-17] MEDS: VENLAFAXINE **XR** 37.5 MG CAPSULE PO SCH (20:59)
[2023-06-17] MEDS: CEPHALEXIN 500 MG CAP PO SCH (20:59)
[2023-06-17 21:29] LABS: HEMATOCRIT 24.6 % (36.0-47.0); HEMOGLOBIN 8.4 g/dl (12.0-15.5)
[2023-06-18 00:07] VITALS: BP 151/67; TEMP 97; O2SAT 99
[2023-06-18] MEDS ORDERED: ACETAMINOPHEN TAB 650MG DOSE (2X325MG) PO ONE (01:00)
[2023-06-18] MEDS ORDERED: RAMELTEON 8 MG TAB (ROZEREM) PO ONE (01:00)
[2023-06-18 04:07] VITALS: BP 132/60; TEMP 97.1; O2SAT 98
[2023-06-18 06:50] LABS: HEMOGLOBIN 8.3 g/dl (12.0-15.5); MEAN CORPUSCULAR HEMOGLOBIN 29.6 pg (27.0-33.0); MEAN CORPUSCULAR HGB CONC 33.2 g/dl (32.0-36.5); MEAN CORPUSCULAR VOLUME 89.3 fl (80.0-96.0); PLATELET COUNT, AUTOMATED 254 10^3/uL (150-450); WHITE BLOOD COUNT 6.8 10^3/uL (4.0-10.0)
[2023-06-18 07:05] LABS: CALCIUM LEVEL 8.8 MG/DL (8.3-10.6); CREATININE FOR GFR 1.17 MG/DL (0.55-1.30); GLOMERULAR FILTRATION RATE 49.3 (>45); POTASSIUM SERUM 3.3 MMOL/L (3.5-5.1)
[2023-06-18] MEDS ORDERED: POTASSIUM CHLORIDE 10MEQ SR TABLET PO ONE (07:15)
[2023-06-18 08:00] VITALS: BP 193/68; TEMP 97; O2SAT 98
[2023-06-18] MEDS: SYMBICORT 160/4.5MCG INHALER 6GM INH SCH ×2 (08:13→20:16)
[2023-06-18] MEDS: SUCRALFATE SUSP 1GM/10ML UD PO SCH ×4 (08:21→20:18)
[2023-06-18] MEDS: LEVOTHYROXINE 25MCG TABLET (0.025MG) PO SCH (08:21)
[2023-06-18] MEDS: PANTOPRAZOLE 40MG VIAL IV SCH ×2 (10:10→20:18)
[2023-06-18] MEDS: ATORVASTATIN 20 MG TAB PO SCH (10:10)
[2023-06-18] MEDS: ISOSORBIDE MON. (IMDUR) 60MG XR TAB PO SCH (10:11)
[2023-06-18] MEDS: CEPHALEXIN 500 MG CAP PO SCH ×3 (10:11→20:18)
[2023-06-18] MEDS: METOPROLOL SUCC (TopROL XL) 100MG *XL* TAB PO SCH (10:11)
[2023-06-18] MEDS: AMIODARONE 200 MG TAB (PACERONE) PO SCH (10:12)
[2023-06-18] MEDS: VENLAFAXINE **XR** 37.5 MG CAPSULE PO SCH ×2 (10:12→20:18)
[2023-06-18] MEDS ORDERED: hydrALAZINE 20MG/ML 1ML VIAL IV PRN (10:25)
[2023-06-18 12:00] VITALS: BP 134/60; TEMP 97.2; O2SAT 99
[2023-06-18 12:21] LABS: HEMATOCRIT 26.2 % (36.0-47.0); HEMOGLOBIN 8.9 g/dl (12.0-15.5)
[2023-06-18] MEDS ORDERED: ACETAMINOPHEN TAB 650MG DOSE (2X325MG) PO PRN (16:55)
[2023-06-18] MEDS ORDERED: PREVNAR-20 VACCINE 0.5ML SYRINGE IM.IMMUN ONE (17:00)
[2023-06-18] MEDS ORDERED: FLUZONE HIGH DOSE(65YR UP)QUAD/PF 240MCG/0.7ML SYRINGE IM.IMMUN ONE (17:00)
[2023-06-18 18:00] VITALS: BP 144/64; TEMP 96.8; O2SAT 100
[2023-06-18 20:00] VITALS: BP 159/64; TEMP 96.9; O2SAT 96
[2023-06-18 20:16] LABS: HEMATOCRIT 25.2 % (36.0-47.0); HEMOGLOBIN 8.5 g/dl (12.0-15.5)
[2023-06-18] MEDS: RAMELTEON 8 MG TAB (ROZEREM) PO PRN (21:07)
[2023-06-19] VITALS (14 sets, daily range): BP systolic 133–194; BP diastolic 54–76; TEMP 96.4–98.8; O2SAT 91–96
[2023-06-19 04:15] LABS: BASO # 0.1 10^3/uL (0.0-0.2); BASO % 0.7 % (0.0-1.0); EOS # 0.2 10^3/uL (0.0-0.5); EOS % 2.3 % (0.0-3.0); HEMATOCRIT 24.5 % (36.0-47.0); HEMOGLOBIN 8.1 g/dl (12.0-15.5); LYMPH # 0.7 10^3/uL (1.5-5.0); MEAN CORPUSCULAR HEMOGLOBIN 30.1 pg (27.0-33.0); MEAN CORPUSCULAR HGB CONC 33.1 g/dl (32.0-36.5); MEAN CORPUSCULAR VOLUME 91.1 fl (80.0-96.0); MONO # 0.6 10^3/uL (0.0-0.8); MONO % 8.1 % (2.0-8.0); NEUTROPHILS # 5.8 10^3/uL (1.5-8.5); NEUTROPHILS % 78.5 % (36.0-66.0); PLATELET COUNT, AUTOMATED 254 10^3/uL (150-450); RED BLOOD COUNT 2.69 10^6/uL (4.00-5.40); WHITE BLOOD COUNT 7.4 10^3/uL (4.0-10.0)
[2023-06-19 04:39] LABS: BLOOD UREA NITROGEN 36 MG/DL (9-23); CALCIUM LEVEL 9.5 MG/DL (8.3-10.6); CARBON DIOXIDE LEVEL 21 MMOL/L (20-31); CHLORIDE LEVEL 112 MMOL/L (98-107); GLOMERULAR FILTRATION RATE > 60.0 (>45); GLUCOSE, FASTING 112 MG/DL (74-106); MAGNESIUM LEVEL 1.7 MG/DL (1.8-2.4); POTASSIUM SERUM 3.8 MMOL/L (3.5-5.1); SODIUM LEVEL 143 MMOL/L (136-145)
[2023-06-19] MEDS: LEVOTHYROXINE 25MCG TABLET (0.025MG) PO SCH (06:27)
[2023-06-19] MEDS: SUCRALFATE SUSP 1GM/10ML UD PO SCH ×4 (07:49→20:14)
[2023-06-19] MEDS: SYMBICORT 160/4.5MCG INHALER 6GM INH SCH ×2 (08:44→20:39)
[2023-06-19] MEDS: CEPHALEXIN 500 MG CAP PO SCH ×3 (08:46→20:13)
[2023-06-19] MEDS: ATORVASTATIN 20 MG TAB PO SCH (08:46)
[2023-06-19] MEDS: PANTOPRAZOLE 40MG VIAL IV SCH ×2 (08:46→20:14)
[2023-06-19] MEDS: AMIODARONE 200 MG TAB (PACERONE) PO SCH (08:47)
[2023-06-19] MEDS: VENLAFAXINE **XR** 37.5 MG CAPSULE PO SCH ×2 (08:47→20:13)
[2023-06-19] MEDS: METOPROLOL SUCC (TopROL XL) 100MG *XL* TAB PO SCH (08:50)
[2023-06-19] MEDS: ISOSORBIDE MON. (IMDUR) 60MG XR TAB PO SCH (08:50)
[2023-06-19] MEDS ORDERED: PREVNAR-20 VACCINE 0.5ML SYRINGE IM.IMMUN ONE (09:00)
[2023-06-19] MEDS ORDERED: FLUZONE HIGH DOSE(65YR UP)QUAD/PF 240MCG/0.7ML SYRINGE IM.IMMUN ONE (09:15)
[2023-06-19] MEDS ORDERED: METOPROLOL 5 MG/5 ML VIAL IV STA (11:32)
[2023-06-19 12:32] LABS: HEMATOCRIT 26.5 % (36.0-47.0); HEMOGLOBIN 8.8 g/dl (12.0-15.5)
[2023-06-19] MEDS ORDERED: LIDOCAINE 2% 100MG/5ML SDV (FOR ANES.) As Ordered ONE (14:47)
[2023-06-19] MEDS ORDERED: propofoL 200 MG/20 ML VIAL As Ordered ONE (14:47)
[2023-06-19 19:22] LABS: HEMATOCRIT 25.1 % (36.0-47.0); HEMOGLOBIN 8.4 g/dl (12.0-15.5)
[2023-06-19] MEDS: RAMELTEON 8 MG TAB (ROZEREM) PO PRN (21:48)
[2023-06-20 03:19] VITALS: BP 158/56; TEMP 97.6; O2SAT 97
[2023-06-20] MEDS: LEVOTHYROXINE 25MCG TABLET (0.025MG) PO SCH (05:08)
[2023-06-20 05:24] LABS: BASO % 0.5 % (0.0-1.0); EOS # 0.1 10^3/uL (0.0-0.5); EOS % 1.7 % (0.0-3.0); HEMATOCRIT 24.2 % (36.0-47.0); HEMOGLOBIN 8.1 g/dl (12.0-15.5); LYMPH # 0.5 10^3/uL (1.5-5.0); LYMPH % 6.4 % (24.0-44.0); MEAN CORPUSCULAR HEMOGLOBIN 30.7 pg (27.0-33.0); MEAN CORPUSCULAR HGB CONC 33.5 g/dl (32.0-36.5); MEAN CORPUSCULAR VOLUME 91.7 fl (80.0-96.0); MONO # 0.7 10^3/uL (0.0-0.8); MONO % 8.3 % (2.0-8.0); NEUTROPHILS % 82.9 % (36.0-66.0); PLATELET COUNT, AUTOMATED 252 10^3/uL (150-450); RED BLOOD COUNT 2.64 10^6/uL (4.00-5.40); WHITE BLOOD COUNT 8.5 10^3/uL (4.0-10.0)
[2023-06-20 06:08] LABS: BLOOD UREA NITROGEN 21 MG/DL (9-23); CALCIUM LEVEL 8.9 MG/DL (8.3-10.6); CARBON DIOXIDE LEVEL 20 MMOL/L (20-31); CHLORIDE LEVEL 111 MMOL/L (98-107); CREATININE FOR GFR 0.82 MG/DL (0.55-1.30); GLOMERULAR FILTRATION RATE > 60.0 (>45); GLUCOSE, FASTING 113 MG/DL (74-106); SODIUM LEVEL 141 MMOL/L (136-145)
[2023-06-20] MEDS ORDERED: KCL 40MEQ IN D5/0.45NS 1000ML 1,000 ML IV SCH (08:00)
[2023-06-20] MEDS ORDERED: POTASSIUM CHLORIDE 10% LIQ 20MEQ/15ML UDC PO ONE (08:00)
[2023-06-20 08:07] VITALS: BP 156/74; TEMP 97; O2SAT 96
[2023-06-20] MEDS: ISOSORBIDE MON. (IMDUR) 60MG XR TAB PO SCH (08:26)
[2023-06-20] MEDS: SUCRALFATE SUSP 1GM/10ML UD PO SCH ×2 (08:26→12:17)
[2023-06-20] MEDS: ATORVASTATIN 20 MG TAB PO SCH (08:26)
[2023-06-20] MEDS: VENLAFAXINE **XR** 37.5 MG CAPSULE PO SCH (08:26)
[2023-06-20 08:27] VITALS: BP 156/74
[2023-06-20] MEDS: PANTOPRAZOLE 40MG VIAL IV SCH (08:27)
[2023-06-20] MEDS: CEPHALEXIN 500 MG CAP PO SCH (08:27)
[2023-06-20] MEDS: METOPROLOL SUCC (TopROL XL) 100MG *XL* TAB PO SCH (08:27)
[2023-06-20] MEDS: SYMBICORT 160/4.5MCG INHALER 6GM INH SCH (08:44)
[2023-06-20] MEDS ORDERED: APIXABAN 5 MG TAB (ELIQUIS) PO SCH (09:00)
[2023-06-20] MEDS: AMIODARONE 200 MG TAB (PACERONE) PO SCH (09:20)
[2023-06-20] MEDS ORDERED: PILL CUTTER 1 EACH XX ONE (09:22)
[2023-06-20] MEDS ORDERED: POTA20EL PO (09:27)
[2023-06-20] MEDS ORDERED: MAGN400T35 PO (09:27)
[2023-06-20] MEDS ORDERED: SUCR1TA PO (09:27)
[2023-06-20] MEDS ORDERED: PROT1TAB2 PO (09:27)
[2023-06-20] MEDS ORDERED: LEVO25TA5 PO (09:32)
[2023-06-20] MEDS ORDERED: BREO1INH INH (09:34)
[2023-06-20 09:42] LABS: MAGNESIUM LEVEL 1.6 MG/DL (1.8-2.4)
[2023-06-20] MEDS ORDERED: POTASSIUM CHLORIDE 10MEQ SR TABLET PO ONE (10:00)
[2023-06-20] MEDS: MAG SULF 1GM/100ML (MAG RUN) 1 GM in IV 1 EA IV SCH ×2 (10:49→12:18)
[2023-06-20 12:00] VITALS: BP 110/58; TEMP 97.7; O2SAT 98
[2023-06-20 13:18] LABS: BLOOD UREA NITROGEN 16 MG/DL (9-23); CARBON DIOXIDE LEVEL 19 MMOL/L (20-31); CHLORIDE LEVEL 113 MMOL/L (98-107); CREATININE FOR GFR 0.67 MG/DL (0.55-1.30); GLOMERULAR FILTRATION RATE > 60.0 (>45); GLUCOSE, FASTING 109 MG/DL (74-106); POTASSIUM SERUM 4.1 MMOL/L (3.5-5.1); SODIUM LEVEL 142 MMOL/L (136-145)
== END 2023-06-20 14:04 | disposition home or self-care (01) | DRG 812 ==
LOC: M ED 12:57 → M ED INP 16:55 → M PCU 21:40
PROVIDERS: ADMIT Internal Medicine; ATTEND Internal Medicine
PROC: 30233N1 Transfusion of Nonautologous Red Blood Cells into Peripheral Vein, Percutaneous Approach (ICD-10-PCS; 2023-06-17)
PROC: 0DB48ZX Excision of Esophagogastric Junction, Via Natural or Artificial Opening Endoscopic, Diagnostic (ICD-10-PCS; principal; 2023-06-19 15:00)
DX: D62 Acute posthemorrhagic anemia (principal); I48.11 Longstanding persistent atrial fibrillation; N17.9 Acute kidney failure, unspecified; I16.9 Hypertensive crisis, unspecified; K92.1 Melena; I25.10 Atherosclerotic heart disease of native coronary artery without angina pectoris; I73.9 Peripheral vascular disease, unspecified; I12.9 Hypertensive chronic kidney disease with stage 1 through stage 4 chronic kidney disease, or unspecified chronic kidney disease; J44.9 Chronic obstructive pulmonary disease, unspecified; E83.42 Hypomagnesemia; E02 Subclinical iodine-deficiency hypothyroidism; K29.70 Gastritis, unspecified, without bleeding; K44.9 Diaphragmatic hernia without obstruction or gangrene; E87.6 Hypokalemia; T46.2X5A Adverse effect of other antidysrhythmic drugs, initial encounter; F32.A Depression, unspecified; I35.0 Nonrheumatic aortic (valve) stenosis; I65.29 Occlusion and stenosis of unspecified carotid artery; N18.9 Chronic kidney disease, unspecified; Z95.1 Presence of aortocoronary bypass graft; Z79.01 Long term (current) use of anticoagulants; Z98.49 Cataract extraction status, unspecified eye; Z87.891 Personal history of nicotine dependence; Z95.820 Peripheral vascular angioplasty status with implants and grafts; Z79.02 Long term (current) use of antithrombotics/antiplatelets; Z79.899 Other long term (current) drug therapy

== ENCOUNTER → 2023-06-23 | Outpatient (CLI) | payer MEDICARE, OTHER ==
[~2023-06-23] MED LIST changes: +ALBU8.5H INH; +AMIO200T49 PO; +CEPH500C PO; +ELIQ5TAB PO; +FURO40TA2 PO; +GABA-1171; +HYDR-3910 PO; +ISOS1TAB36 PO; +ISOVUE-370 76% 100ML VIAL As Ordered ONE; +LEVO25TA5 PO; +MAGN400T35 PO; +PANT40TA29; +POTA10CA60 PO; +POTA20EL PO; +PROT1TAB2 PO; +SUCR1TA PO; +VENL-102 PO
== END ==
LOC: M RAD 10:32
PROVIDERS: ATTEND Physician Assistant
DX: I70.90 Unspecified atherosclerosis (principal)

== ENCOUNTER → 2023-07-07 | Outpatient (CLI) | payer OTHER ==
[~2023-07-07] MED LIST changes: -ISOVUE-370 76% 100ML VIAL As Ordered ONE
== END ==
LOC: M RAD 17:16
PROVIDERS: ATTEND Nurse Practitioner Family
DX: R91.1 Solitary pulmonary nodule (principal)